=== PATIENT | male | born 1960 | race Caucasian/White ===

== ENCOUNTER 2022-05-23 13:28 | Emergency (ER) | payer OTHER ==
[~2022-05-23] VITALS: Ht 182.9 cm; Wt 87.5 kg
[~2022-05-23 13:28] MED LIST: BENZ100A PO; DOXY100 PO
== END 2022-05-23 15:49 | disposition home or self-care (01) ==
LOC: ER 13:28
DX: S61.412A Laceration without foreign body of left hand, initial encounter (principal); W26.0XXA Contact with knife, initial encounter; Z88.0 Allergy status to penicillin
CPT/HCPCS: 12001; 99282-25

== ENCOUNTER 2022-09-17 13:04 | Observation (INO) | payer OTHER ==
[~2022-09-17] VITALS: Ht 182.9 cm; Wt 83.9 kg
[2022-09-17 13:59] LABS: Hemoglobin 9.4 g/dL (13.5-17.5); Mean Corpuscular HGB 34.6 pg (26.0-34.0); Mean Corpuscular HGB Conc 34.8 g/dL (31.5-36.5); Mean Corpuscular Volume 99 fL (80-100); Mean Platelet Volume 10.1 fL (9.1-12.4); NRBC ABSOLUTE 0.03 K/mm3 (0.00-0.02); NRBC Auto 0.4 /100 WBC (0.0-0.2); Platelet Count 193 K/mm3 (150-400); RDW Standard Deviation 54.1 fL (35.1-46.3); Red Blood Cell Count 2.72 M/mm3 (4.30-5.90); White Blood Cell Count 7.72 K/mm3 (4.00-11.30)
[2022-09-17] MEDS ORDERED: LOSA50 PO (14:09)
[2022-09-17] MEDS ORDERED: LEVOFLOXACIN50011 PO (14:09)
[2022-09-17] MEDS ORDERED: INCRUSE ELPT62.5MCG INH (14:09)
[2022-09-17] MEDS ORDERED: METO50ER PO (14:10)
[2022-09-17 14:27] LABS: Albumin, Blood 3.2 g/dL (3.4-5.0); Albumin/Globulin Ratio 0.8 (0.8-1.8); Bilirubin, Total 0.3 mg/dL (0.1-1.0); Bun/Creatinine Ratio 20.4 (12.0-20.0); Calcium, Blood 8.5 mg/dL (8.5-10.1); Creatinine, Blood 0.93 mg/dL (0.60-1.20); Potassium, Blood 4.3 mmol/L (3.5-5.5); Total Protein, Blood 7.2 g/dL (6.4-8.2)
[2022-09-17 14:34] LABS: EOSINOPHILS PERCENT MAN 0 % (0-6)
[2022-09-17 14:37] LABS: BAND PERCENT MAN 2 % (0-8); BASOPHILS ABSOLUTE MAN 0.07 K/mm3 (0.00-0.23); BASOPHILS PERCENT MAN 1 % (0-2); LYMPHOCYTES ABSOLUTE MAN 1.46 K/mm3 (0.84-5.20); LYMPHOCYTES PERCENT MAN 19 % (21-46); MONOCYTES ABSOLUTE MAN 0.54 K/mm3 (0.16-1.47); MONOCYTES PERCENT MAN 7 % (4-13); NEUTROPHILS ABSOLUTE MAN 5.63 K/mm3 (1.96-9.15); SEG NEUTROPHILS PERCENT MAN 71 % (41-73); TOTAL CELLS COUNTED 100
--- NOTE | 2022-09-17 18:46 | NUR ---
SHIFT SUMMARY/ADMIT PATIENT ADMITTED AT 1800 FROM ER. PATIENT SETTLED INTO ROOM. PATIENT ORIENTED TO CALL LIGHT AND TV CONTROL. PATIENT SIGNIFICANT OTHER AT BEDSIDE DURING ADMIT. ADMISSION COMPLETE. PATIENT DENIES PAIN, CHEST PAIN, NAUSEA, AND SHORTNESS OF BREATH. PATIENT IS IND IN THE ROOM. PATIENT ON TELE, SR AT 92. PATIENT RECENTLY DX WITH LUNG CANCER AND RECEIVING CHEMO. PATIENT IS A&OX4. PATIENT IS EATING AND DRINKING WELL. PATIENT IS PLEASANT AND COOPERATIVE WITH CARE. NICOTINE PATCH ORDERED PER REQUEST OF PATIENT. PATIENT IS A 1PPD SMOKER.
--- NOTE | 2022-09-18 05:54 | NUR ---
FINANCE AND ADMINISTRATION MANAGER SUMMARY PT A/OX4. INDEPENDENT IN ROOM. ABLE TO MADE NEEDS KNOWN. PLEASANT AND COOPERATIVE W/CARE. NO ACUTE EVENTS OVER NIGHT. PT DENIES CHEST PAIN/PRESSURE, SOB, OR NAUSEA. TROPONIN SERIES COMPLETE--WNL AND TRENDING DOWN. REMAINS ON TELE, NORMAL SINUS IN THE 80'S. CALL LIGHT ACCESSIBLE.
[2022-09-18 05:57] LABS: Hematocrit 25.8 % (37.0-53.0); Mean Corpuscular HGB 34.6 pg (26.0-34.0); Mean Corpuscular HGB Conc 34.9 g/dL (31.5-36.5); Mean Corpuscular Volume 99 fL (80-100); Mean Platelet Volume 10.3 fL (9.1-12.4); NRBC ABSOLUTE 0.04 K/mm3 (0.00-0.02); NRBC Auto 0.3 /100 WBC (0.0-0.2); Platelet Count 176 K/mm3 (150-400); RDW Coefficient Variation 15.9 % (11.7-14.2); RDW Standard Deviation 52.9 fL (35.1-46.3); White Blood Cell Count 15.75 K/mm3 (4.00-11.30)
[2022-09-18 06:28] LABS: BAND PERCENT MAN 6 % (0-8); BASOPHILS PERCENT MAN 0 % (0-2); EOSINOPHILS PERCENT MAN 0 % (0-6); LYMPHOCYTES ABSOLUTE MAN 1.57 K/mm3 (0.84-5.20); LYMPHOCYTES PERCENT MAN 10 % (21-46); MONOCYTES ABSOLUTE MAN 0.31 K/mm3 (0.16-1.47); MONOCYTES PERCENT MAN 2 % (4-13); MYELOCYTE ABSOLUTE MAN 0.31 K/mm3 (0.00-0.00); MYELOCYTE PERCENT MAN 2 % (0-0); NEUTROPHILS ABSOLUTE MAN 13.54 K/mm3 (1.96-9.15); SEG NEUTROPHILS PERCENT MAN 80 % (41-73); TOTAL CELLS COUNTED 100
[2022-09-18 06:51] LABS: Albumin, Blood 2.8 g/dL (3.4-5.0); Anion Gap 6 mmol/L (6-16); Blood Urea Nitrogen 16 mg/dL (8-24); Bun/Creatinine Ratio 17.5 (12.0-20.0); CO2, Blood 22 mmol/L (21-32); Calcium, Blood 8.4 mg/dL (8.5-10.1); Chloride, Blood 104 mmol/L (98-108); Creatinine, Blood 0.92 mg/dL (0.60-1.20); Glomerular Filtration Rate 95 (60-); Glucose, Blood 101 mg/dL (70-99); Potassium, Blood 4.4 mmol/L (3.5-5.5); Sodium, Blood 132 mmol/L (136-145)
[2022-09-18] MEDS ORDERED: TIOT18 INH (17:37)
--- NOTE | 2022-09-18 18:32 | NUR ---
SHIFT SUMMARY PT REPORTS NO CP/PRESSURE/PALPITATIONS THIS SHIFT. OCCASIONAL COUGH NOTED AND PT ON ABX. PT CLEARED FOR DC AFTER HE HAS AN ECHOCARDIOGRAM. VSS. RESTING IN BED COMFORTABLY WITH HIS CALL LIGHT IN REACH.
--- NOTE | 2022-09-19 06:34 | NUR ---
EDITOR FARM JOURNAL SUMMARY: A&Ox4. PLEASANT AND COOPERATIVE WITH CARE. CALLS APPROPRIATELY AND IS ABLE TO COMMUNICATE NEEDS EFFECTIVELY. ORIENTED TO OWN ABILITIES AND EXHIBITS GOOD JUDGMENT. TELE SINUS w/ BBB. HAD SEVERAL EPISODES OF DIPPING DOWN INTO LOW-30s; PT ASYMPTOMATIC AND WAS NOTED TO BE SNORING DURING EACH OF THE TIMES BRADYCARDIA WAS NOTED. Dx JIM WITHOUT CPAP USE. ANTICIPATE DC HOME TODAY AFTER ECHO, IF IT IS WNL. INDEPENDENT WITHIN ROOM. NO CONCERNS T/O THE EVENING. REPORT TO ONCOMING RN.
--- NOTE | 2022-09-19 13:00 | NUR ---
DISCHARGE SUMMARY: PT EDUCATED ON DISCHARGE INSTRUCTIONS AND MEDICATIONS. PT VU. PT ASSISTED WITH PACKING UP BELONGINGS NICOTINE PATCH REMOVED PT INDICATED HE WAS GOING TO SMOKE CIGARETTES POST DISCHARGE. PT EDUCATED ON SMOKING CESSATION. PT ESCORTED TO POV WITH FRIEND VIA WC.
== END 2022-09-19 12:06 | disposition home or self-care (01) ==
LOC: ER 13:04 → MEDS 13:05 → ENPENDDIS 09-18 18:37 → MEDS 09-19 12:06
PROVIDERS: Emergency Medicine; ADMIT Family Medicine
DX: R07.89 Other chest pain (principal); Z88.0 Allergy status to penicillin; I10 Essential (primary) hypertension; F17.200 Nicotine dependence, unspecified, uncomplicated; C34.92 Malignant neoplasm of unspecified part of left bronchus or lung; R77.8 Other specified abnormalities of plasma proteins
CPT/HCPCS: 36415; 71046; 80053; 80069; 83880; 84145; 84484; 85025; 93005; 93010; 93306; 93356; 94640; 94664; 94760; 96372; 99285-25; A9270; G0378; J1650

== ENCOUNTER → 2022-11-13 | Outpatient (CLI) | payer OTHER ==
[~2022-11-13] MED LIST changes: +INCRUSE ELPT62.5MCG INH; +LEVOFLOXACIN50011 PO; +LOSA50 PO; +METO50ER PO; +TIOT18 INH
== END | disposition home or self-care (01) ==
LOC: LAB SHORT 14:05 → LAB 14:05
DX: L02.213 Cutaneous abscess of chest wall (principal)
CPT/HCPCS: 87070; 87075; 87205

== ENCOUNTER 2023-02-07 12:25 | Emergency (ER) | payer OTHER ==
[~2023-02-07] VITALS: Ht 182.9 cm; Wt 83.9 kg
[~2023-02-07 12:25] MED LIST changes: +HYDCOR20 PO; +LEVSOD137 PO; +METO25 PO; +Nicoderm Cq1 EAC1 TOP
[2023-02-07 12:32] VITALS: BP 128/71
[2023-02-07 12:55] LABS: BASOPHILS ABSOLUTE AUTO 0.02 K/mm3 (0.00-0.23); BASOPHILS PERCENT AUTO 0 % (0-2); EOSINOPHILS ABSOLUTE AUTO 0.16 K/mm3 (0.00-0.68); EOSINOPHILS PERCENT AUTO 2 % (0-6); Hematocrit 31.8 % (37.0-53.0); Hemoglobin 10.6 g/dL (13.5-17.5); IMMATURE GRAN ABSOLUTE AUTO 0.04 K/mm3 (0.00-0.10); IMMATURE GRAN PERCENT AUTO 1 % (0-1); LYMPHOCYTES ABSOLUTE AUTO 0.65 K/mm3 (0.84-5.20); LYMPHOCYTES PERCENT AUTO 8 % (21-46); MONOCYTES ABSOLUTE AUTO 0.61 K/mm3 (0.16-1.47); MONOCYTES PERCENT AUTO 8 % (4-13); Mean Corpuscular HGB 34.4 pg (26.0-34.0); Mean Corpuscular HGB Conc 33.3 g/dL (31.5-36.5); Mean Corpuscular Volume 103 fL (80-100); Mean Platelet Volume 10.2 fL (9.1-12.4); NEUTROPHILS ABSOLUTE AUTO 6.27 K/mm3 (1.96-9.15); NEUTROPHILS PERCENT AUTO 81 % (41-73); Platelet Count 182 K/mm3 (150-400); RDW Coefficient Variation 15.1 % (11.7-14.2); RDW Standard Deviation 57.2 fL (35.1-46.3); Red Blood Cell Count 3.08 M/mm3 (4.30-5.90); White Blood Cell Count 7.75 K/mm3 (4.00-11.30)
[2023-02-07 13:11] LABS: Albumin, Blood 2.3 g/dL (3.4-5.0); Albumin/Globulin Ratio 0.7 (0.8-1.8); Bilirubin, Total 0.3 mg/dL (0.1-1.0); Bun/Creatinine Ratio 19.3 (12.0-20.0); Calcium, Blood 7.4 mg/dL (8.5-10.1); Creatinine, Blood 0.88 mg/dL (0.60-1.20); Globulin, Blood 3.4 g/dL (2.2-4.0); Potassium, Blood 4.1 mmol/L (3.5-5.5); Total Protein, Blood 5.7 g/dL (6.4-8.2)
[2023-02-07 13:19] LABS: Free Thyroxine 0.7 ng/dL (0.70-1.60)
[2023-02-07 13:21] LABS: Thyroid Stimulating Hormone 43.2 uIU/mL (0.360-4.800); Triiodothyronine, Free 0.56 pg/mL (2.18-3.98)
== END 2023-02-07 14:50 | disposition home or self-care (01) ==
LOC: ER 12:25
PROVIDERS: Emergency Medicine
DX: E03.9 Hypothyroidism, unspecified (principal); Z88.0 Allergy status to penicillin; Z79.890 Hormone replacement therapy; Z79.899 Other long term (current) drug therapy
CPT/HCPCS: 80053; 83735; 83880; 84439; 84443; 84481; 85025; 93005; 93010; 99284-25

== ENCOUNTER 2023-02-21 15:39 | Inpatient (IN) | payer OTHER ==
[~2023-02-21] VITALS: Ht 182.9 cm; Wt 84.5 kg
[2023-02-21] VITALS (18 sets, daily range): BP systolic 88–127; BP diastolic 60–78
[2023-02-21] MEDS ORDERED: LEVOTHYROXINE150 MC9 PO (16:15)
[2023-02-21] MEDS ORDERED: ACET500 PO (16:19)
[2023-02-21] MEDS ORDERED: 1/2 NS 250ml250 ML (16:19)
[2023-02-21 17:15] LABS: BASOPHILS ABSOLUTE AUTO 0.02 K/mm3 (0.00-0.23); BASOPHILS PERCENT AUTO 0 % (0-2); EOSINOPHILS ABSOLUTE AUTO 0.35 K/mm3 (0.00-0.68); EOSINOPHILS PERCENT AUTO 6 % (0-6); Hematocrit 32.2 % (37.0-53.0); Hemoglobin 10.8 g/dL (13.5-17.5); IMMATURE GRAN ABSOLUTE AUTO 0.04 K/mm3 (0.00-0.10); IMMATURE GRAN PERCENT AUTO 1 % (0-1); LYMPHOCYTES PERCENT AUTO 15 % (21-46); MONOCYTES ABSOLUTE AUTO 0.54 K/mm3 (0.16-1.47); MONOCYTES PERCENT AUTO 9 % (4-13); Mean Corpuscular HGB 34.4 pg (26.0-34.0); Mean Corpuscular HGB Conc 33.5 g/dL (31.5-36.5); Mean Corpuscular Volume 103 fL (80-100); Mean Platelet Volume 9.5 fL (9.1-12.4); NEUTROPHILS ABSOLUTE AUTO 4.13 K/mm3 (1.96-9.15); NEUTROPHILS PERCENT AUTO 69 % (41-73); Platelet Count 227 K/mm3 (150-400); RDW Coefficient Variation 14.5 % (11.7-14.2); RDW Standard Deviation 54.7 fL (35.1-46.3); Red Blood Cell Count 3.14 M/mm3 (4.30-5.90); White Blood Cell Count 5.98 K/mm3 (4.00-11.30)
--- NOTE | 2023-02-21 17:20 | NUR ---
ADMISSION AND SHIFT SUMMARY PATIENT DIRECT ADMIT FROM [place]. PATIENT LETHARGIC BUT ALERT WHEN AROUSED. PATIENT DENIES ANY CHEST PAIN OR SHORTNESS OF BREATH. LUNGS DECREASED THROUGHOUT. PATIENT DENIES ANY ABD. PAIN. STATES THAT HE HAS HAD A POOR APPETITE FOR MONTHS AND HAS LOST OVER 30LBS. PATIENT NOTED TO HAVE BLE EDEMA. FAMILY STATES THAT THIS IS WHAT HAPPEN LAST TIME. PATIENT RECENTLY DISCHARGED FROM REHAB. FAMILY STATE THAT THEY HAVE BEEN HAVING TROUBLE GETTING HIS MEDICATIONS FOR AT HOME AND PATIENT HAS NOT TAKEN HIS METOPROLOL FOR ABOUT A WEEK. PATIENT'S HR [address] NAVARRETE NOTIFIED OF HR. PLAN TO START PO LOPRESSOR TONIGHT. PATIENT NOTED TO HAVE NO SKIN ISSUES AT THIS TIME. PATIENT HAS LARGE MOLE/SKIN TAG ON L LOWER BACK. NEW IV STARTED. PATIENT TAKEN DOWN TO CT VIA GURNEY AND RETURNED.
[2023-02-21 17:36] LABS: Albumin, Blood 3.1 g/dL (3.4-5.0); Albumin/Globulin Ratio 0.8 (0.8-1.8); Bilirubin, Total 0.6 mg/dL (0.1-1.0); Bun/Creatinine Ratio 19.9 (12.0-20.0); Calcium, Blood 8.5 mg/dL (8.5-10.1); Creatinine, Blood 0.81 mg/dL (0.60-1.20); Potassium, Blood 4.3 mmol/L (3.5-5.5); Total Protein, Blood 7.1 g/dL (6.4-8.2)
[2023-02-21 21:58] LABS: Anion Gap Unable to Calculate mmol/L (6-16); Bun/Creatinine Ratio Unable to Calculate (12.0-20.0)
[2023-02-21 22:25] LABS: BASOPHILS ABSOLUTE AUTO 0.01 K/mm3 (0.00-0.23); BASOPHILS PERCENT AUTO 0 % (0-2); EOSINOPHILS ABSOLUTE AUTO 0.08 K/mm3 (0.00-0.68); EOSINOPHILS PERCENT AUTO 2 % (0-6); Hematocrit 24.3 % (37.0-53.0); Hemoglobin 8.3 g/dL (13.5-17.5); IMMATURE GRAN ABSOLUTE AUTO 0.03 K/mm3 (0.00-0.10); IMMATURE GRAN PERCENT AUTO 1 % (0-1); LYMPHOCYTES ABSOLUTE AUTO 0.27 K/mm3 (0.84-5.20); LYMPHOCYTES PERCENT AUTO 6 % (21-46); MONOCYTES ABSOLUTE AUTO 0.18 K/mm3 (0.16-1.47); MONOCYTES PERCENT AUTO 4 % (4-13); Mean Corpuscular HGB 34.6 pg (26.0-34.0); Mean Corpuscular HGB Conc 34.2 g/dL (31.5-36.5); Mean Corpuscular Volume 101 fL (80-100); Mean Platelet Volume 9.3 fL (9.1-12.4); NEUTROPHILS ABSOLUTE AUTO 4.38 K/mm3 (1.96-9.15); NEUTROPHILS PERCENT AUTO 89 % (41-73); Platelet Count 199 K/mm3 (150-400); RDW Coefficient Variation 14.3 % (11.7-14.2); RDW Standard Deviation 53.3 fL (35.1-46.3); White Blood Cell Count 4.95 K/mm3 (4.00-11.30)
--- NOTE | 2023-02-21 22:34 | NUR ---
ARRIVAL TP PCU7 / SAFETY & EDUCATION PT ARRIVED TO PCU7 AT APPROXIMATELY 2039. SWITCHED BEDS SO PT REMAINED IN HOPITAL BED FROM MEDICAL FLOOR OT REQUIRING TRANSFER ASSISTANCE. PT A&Ox4, COMMUNICATES NEEDS APPROPRIATELY, ORIENTED TO CALL LIGHT/UNIT. SpO2> 92% BASELINE 2L VAI NC, DENIES SOB. UPON ARRIVAL PT IN SVT 140-160's, ASYMPTOMATIC, BP STABLE, DENIES CP/PRESSURE. PHSYCIAN AT BEDSIDE PROVIDED INSTRUCTION AND ORDERS. HAD PT BLOW INTO SYRINGE TO ATTEMPT VAGAL MANEUVER, THIS WAS UNSUCCESSFUL. PT RECEIVING 1000mL BOLUS UPON ARRIVAL. PT HAD NOT BEEN ADMINISTERED METOPROLOL THAT WAS ORDERED AT 1850. ORDERS PLACED TO ADMINISTER ADENOSINE. PHYSICIAN REMAINS AT BEDSIDE, CODE CART IN ROOM, PT CONNECTED TO EKG MACHINE, RT, AND WEB SITE PROJECT MANAGER IN ROOM. NEW 18g PERIPHERAL IV PLACED IN L AC, PATENT AND DRAWS BACK. THIS RN ADMINISTERED ORDERED ADENOSINE, PT REPSPONDED WELL, CONVERTED TO NSR, BP AND SpO2 REMAINS STABLE. PT NOW RESTING COMFORTABLY, BED IN LOWEST POSITION, CALL LIGHT IN REACH. PT NOTIFED FAMILY OF TRANSFER. PT & FAMILY EDUCATED RE: IGNITION SOURCES AND RISK OF INJURY WHILE OXYGEN IS IN USE. PT DENIES SMOKING & PT AND FAMILY VERBALIZE UNDERSTANDING.
[2023-02-21 22:54] LABS: Magnesium, Blood 1.7 mg/dL (1.6-2.4); Thyroid Stimulating Hormone 18.6 uIU/mL (0.360-4.800)
[2023-02-21 22:57] LABS: Bun/Creatinine Ratio 16.7 (12.0-20.0); Calcium, Blood 7.4 mg/dL (8.5-10.1); Creatinine, Blood 1.02 mg/dL (0.60-1.20); Potassium, Blood 3.9 mmol/L (3.5-5.5)
[2023-02-22] VITALS (13 sets, daily range): BP systolic 107–150; BP diastolic 60–80
[2023-02-22 04:10] LABS: BASOPHILS ABSOLUTE AUTO 0.01 K/mm3 (0.00-0.23); BASOPHILS PERCENT AUTO 0 % (0-2); EOSINOPHILS ABSOLUTE AUTO 0.01 K/mm3 (0.00-0.68); EOSINOPHILS PERCENT AUTO 0 % (0-6); Hematocrit 27.4 % (37.0-53.0); Hemoglobin 9.3 g/dL (13.5-17.5); IMMATURE GRAN ABSOLUTE AUTO 0.01 K/mm3 (0.00-0.10); IMMATURE GRAN PERCENT AUTO 0 % (0-1); LYMPHOCYTES ABSOLUTE AUTO 0.29 K/mm3 (0.84-5.20); LYMPHOCYTES PERCENT AUTO 9 % (21-46); MONOCYTES ABSOLUTE AUTO 0.23 K/mm3 (0.16-1.47); MONOCYTES PERCENT AUTO 7 % (4-13); Mean Corpuscular HGB 34.3 pg (26.0-34.0); Mean Corpuscular HGB Conc 33.9 g/dL (31.5-36.5); Mean Corpuscular Volume 101 fL (80-100); Mean Platelet Volume 9.6 fL (9.1-12.4); NEUTROPHILS ABSOLUTE AUTO 2.85 K/mm3 (1.96-9.15); NEUTROPHILS PERCENT AUTO 84 % (41-73); Platelet Count 219 K/mm3 (150-400); RDW Coefficient Variation 14.1 % (11.7-14.2); RDW Standard Deviation 51.9 fL (35.1-46.3); Red Blood Cell Count 2.71 M/mm3 (4.30-5.90)
[2023-02-22 04:50] LABS: Albumin, Blood 2.5 g/dL (3.4-5.0); Albumin/Globulin Ratio 0.7 (0.8-1.8); Bilirubin, Total 0.4 mg/dL (0.1-1.0); Calcium, Blood 7.5 mg/dL (8.5-10.1); Globulin, Blood 3.6 g/dL (2.2-4.0); Magnesium, Blood 1.8 mg/dL (1.6-2.4); Phosphorus, Blood 2.8 mg/dL (2.5-4.9); Potassium, Blood 4.3 mmol/L (3.5-5.5); Thyroid Stimulating Hormone 13.6 uIU/mL (0.360-4.800); Total Protein, Blood 6.1 g/dL (6.4-8.2)
--- NOTE | 2023-02-22 04:50 | NUR ---
SHIFT SUMMARY SEE PREVIOUS NOTE. PT A&Ox4, CALLS AND COMMUNICATES NEEDS APPROPRIATELY. BP STABLE, SINUS 70's, DENIES CP/PRESSURE. SpO2> 92% ON BASELINE 2L VIA NC, DENIES SOB. CONTINENT OF URINE, USES URINAL IND IN BED. NO BM THIS SHIFT. NO OTHER EVENTS, WILL REPORT TO ONCOMING RN.
--- NOTE | 2023-02-22 10:31 | NUR ---
CARE ASSUMPTION THIS RN ASSUMED CARE AT 0700. VITAL SIGNS STABLE. TELE SR 70S. PATIENT IS ALERT AND ORIENTED X4. PATIENT REPORTS NO CHEST PAIN/PRESSURE. PATIENT REPORTS NO PAIN. PATIENT REPORTS NO SHORTNESS OF BREATH. SEE SHIFT ASSESSMENT FOR FURTHER DETIALS. PATIENT IN TO BATHROOM INDEPDENTLY. THIS RN UNHOOKED FROM BLOOD PRESSURE CUFF AND SPO2 MONITOR. PATIENT PERFORMED ADLS INDEPDENTLY. PLAN OF CARE UP TO DATE.
--- NOTE | 2023-02-22 16:58 | NUR ---
shift summary patient neuro remains unchaged. vital signs stable. no acute changes this shift. plan to discharge tomorrow.
[2023-02-23 04:52] VITALS: BP 160/82
--- NOTE | 2023-02-23 06:32 | NUR ---
SHIFT SUMMARY PATIENT ALERT AND ORIENTED x4, ABLE TO MAKE NEEDS KNOWN. VITALS STABLE. TELE READING SR/SB WITH OCCASIONAL TRIGEM, PATIENT ASYMPTOMATIC. PATIENT ON 2L OVERNIGHT D/T SLIGHT DESAT WHILE SLEEPING. PATIENT USING URINAL INDEPENDENTLY WITH ADEQUATE OUTPUT. TOLERATING PO. MOVING SELF IN BED INDEPDENDENTLY. NO OTHER SIGNIFICANT CHANGES OVERNIGHT. WILL GIVE REPORT TO DAY SHIFT RN. NO IGNITION RISK NOTED AT THIS TIME. PATIENT EDUCATED AND VERBALIZED UNDERSTANDING. WILL CONTINUE TO MONITOR IGNITION RISK.
[2023-02-23 08:00] VITALS: BP 146/78
--- NOTE | 2023-02-23 09:13 | NUR ---
CARE OF PT ASSUMED AT 0700. PT SITTING UP IN BED WATCHING TV W/O COMPLAINTS. DENIES SOB/PAIN. SATS >95% ON 2L VIA N/C. VSS. PT HOPES TO GO HOME LONG HE IS ABLE TO LEATHER POLISHER PRESCRIPTIONS WITHOUT AN ISSUE.
[2023-02-23 11:15] VITALS: BP 147/79
[2023-02-23 16:30] VITALS: BP 161/84
--- NOTE | 2023-02-23 17:57 | NUR ---
DR NAVARRETE IN TO SEE PT THIS EVENING. PLAN: DISCHARGE PT HOME TOMORROW, PT NEEDS A MEDICATION/PRESCRIPTION THAT REQUIRES A PRIOR AUTHORIZATION PER DR NAVARRETE. PT RESTED IN BED WATCHING TV FOR ENTIRE SHIFT W/O COMPLAINTS. VSS, SATS HIGH 90'S ON 2L VIA N/C.
[2023-02-23 20:03] VITALS: BP 132/75
[2023-02-24 05:23] VITALS: BP 148/79
--- NOTE | 2023-02-24 05:48 | NUR ---
SHIFT SUMMARY NO CHANGES OVER NIGHT, A&O X4, VSS, SPO2 >93% ON 2 L O2 VIA NC, DENIES PAIN, USING URINAL INDEPENDENTLY, VOIDING WNL, TOLERATING PO INTAKE, WCTM & REPORT TO DAY RN, RESTING QUIETLY THIS AM WATCHING TV, CALL LIGHT IN REACH.
[2023-02-24 07:51] VITALS: BP 135/79
[2023-02-24 15:48] VITALS: BP 151/82
--- NOTE | 2023-02-24 16:23 | NUR ---
DISCHARGE SUMMARY PT A&OX4,VSS. PT UP TO BATHROOM TO SHOWER PRIOR TO DISCHARGE. PRIOR AUTH RECEIVED FROM [facility] TODAY, SPOUSE IN ROOM WITH DISCHARGE MEDICATIONS ALREADY PICKED UP FROM PHARMACY. IV REMOVED. DISCHARGE PAPERWORK/MEDICATIONS REVIEWED WITH PT. PT WHEELED OUT BY PCT W/ SPOUSE.
== END 2023-02-24 16:09 | disposition home or self-care (01) | DRG 871 ==
LOC: MEDS 15:39 → PCU 15:47 → MEDS 15:47 → PCU 20:39
PROVIDERS: Student in an Organized Health Care Education/Training Program; ADMIT Internal Medicine
DX: A41.9 Sepsis, unspecified organism (principal); E03.5 Myxedema coma; J96.01 Acute respiratory failure with hypoxia; J18.9 Pneumonia, unspecified organism; G92.8 Other toxic encephalopathy; E27.3 Drug-induced adrenocortical insufficiency; C34.12 Malignant neoplasm of upper lobe, left bronchus or lung; N17.9 Acute kidney failure, unspecified; I47.1 Supraventricular tachycardia; J44.0 Chronic obstructive pulmonary disease with (acute) lower respiratory infection; T45.1X5A Adverse effect of antineoplastic and immunosuppressive drugs, initial encounter; E06.3 Autoimmune thyroiditis; E87.6 Hypokalemia; I27.20 Pulmonary hypertension, unspecified; F17.210 Nicotine dependence, cigarettes, uncomplicated; E83.42 Hypomagnesemia; R54 Age-related physical debility; D64.9 Anemia, unspecified; R77.8 Other specified abnormalities of plasma proteins; T38.0X6A Underdosing of glucocorticoids and synthetic analogues, initial encounter; Z71.6 Tobacco abuse counseling; Z90.89 Acquired absence of other organs; Z88.0 Allergy status to penicillin; Z79.890 Hormone replacement therapy; Z79.899 Other long term (current) drug therapy; Z91.148 Patient's other noncompliance with medication regimen for other reason
CPT/HCPCS: 36415; 71260; 80048; 80053; 83735; 84100; 84145; 84443; 85025; 93005; 93010; 94640; 94664; 94760; 94762; A9270; J0153; J0696; J1650; J1720; J7030; Q9967

== ENCOUNTER 2023-04-26 15:43 | Inpatient (IN) | payer OTHER ==
[~2023-04-26] VITALS: Ht 182.9 cm; Wt 71.5 kg
[~2023-04-26 15:43] MED LIST changes: +1/2 NS 250ml250 ML; +ACET500 PO; +LEVOTHYROXINE150 MC9 PO
[2023-04-26 16:25] LABS: BASOPHILS ABSOLUTE AUTO 0.03 K/mm3 (0.00-0.23); BASOPHILS PERCENT AUTO 1 % (0-2); EOSINOPHILS ABSOLUTE AUTO 0.23 K/mm3 (0.00-0.68); EOSINOPHILS PERCENT AUTO 4 % (0-6); Hematocrit 30.1 % (37.0-53.0); Hemoglobin 10.2 g/dL (13.5-17.5); IMMATURE GRAN ABSOLUTE AUTO 0.03 K/mm3 (0.00-0.10); IMMATURE GRAN PERCENT AUTO 1 % (0-1); LYMPHOCYTES ABSOLUTE AUTO 1.01 K/mm3 (0.84-5.20); LYMPHOCYTES PERCENT AUTO 16 % (21-46); MONOCYTES ABSOLUTE AUTO 0.83 K/mm3 (0.16-1.47); MONOCYTES PERCENT AUTO 13 % (4-13); Mean Corpuscular HGB 32.7 pg (26.0-34.0); Mean Corpuscular HGB Conc 33.9 g/dL (31.5-36.5); Mean Corpuscular Volume 97 fL (80-100); Mean Platelet Volume 9.2 fL (9.1-12.4); NEUTROPHILS PERCENT AUTO 67 % (41-73); Platelet Count 204 K/mm3 (150-400); RDW Coefficient Variation 12.9 % (11.7-14.2); RDW Standard Deviation 44.4 fL (35.1-46.3); Red Blood Cell Count 3.12 M/mm3 (4.30-5.90); White Blood Cell Count 6.53 K/mm3 (4.00-11.30)
[2023-04-26 16:42] LABS: Albumin, Blood 2.6 g/dL (3.4-5.0); Albumin/Globulin Ratio 0.8 (0.8-1.8); Bilirubin, Total 0.7 mg/dL (0.1-1.0); Bun/Creatinine Ratio 11.3 (12.0-20.0); Calcium, Blood 9.3 mg/dL (8.5-10.1); Creatinine, Blood 1.77 mg/dL (0.60-1.20); Globulin, Blood 3.4 g/dL (2.2-4.0)
[2023-04-26 16:45] LABS: Base Excess Venous -0.6 mmol/L; Bicarbonate Venous 23.2 mmol/L (24.0-30.0); PCO2 Venous 55.6 mmHg (38-42); pH Blood Venous 7.28 (7.34-7.37)
[2023-04-26 16:57] LABS: International Normalized Ratio 1.25
[2023-04-26 16:59] LABS: Free Thyroxine 1.74 ng/dL (0.70-1.60)
[2023-04-26 17:02] LABS: Thyroid Stimulating Hormone 0.839 uIU/mL (0.360-4.800); Triiodothyronine, Free 1.92 pg/mL (2.18-3.98)
[2023-04-26 19:09] LABS: Influenza A, PCR NEGATIVE (NEGATIVE); Influenza B, PCR NEGATIVE (NEGATIVE); Resp Syncytial Virus, PCR NEGATIVE (NEGATIVE); SARS-Cov-2 (COVID-19) PCR, MMC NEGATIVE (NEGATIVE)
[2023-04-26 19:41] LABS: Source, Urine Straight Cath
[2023-04-26 19:56] LABS: Blood, Urine 1+ (Neg); Glucose Qualitative, Urine Neg (Neg); Ketones, Urine 1+ (Neg); Leukocyte Esterase, Urine 1+ (Neg); Nitrite, Urine Neg (Neg); Protein, Urine 2+ (Neg); Urobilinogen, Urine 2+ (Normal)
[2023-04-26 20:05] LABS: Appearance, Urine Hazy (Clear); Bilirubin, Urine 1+ (Neg); Color, Urine Amber (P-Yellow)
[2023-04-26 20:07] LABS: Amorphous Light (0-Heavy); Bacteria Few /hpf; Hyaline Casts 25-50 /lpf (0-2); Mucus Mod (0-Heavy); Red Blood Cells, Urine 0-2 /hpf (0-2); Squamous Epithelial Cells Rare /hpf (Few); White Blood Cells, Urine 0-2 /hpf (0-5)
[2023-04-26 20:10] VITALS: BP 100/64
--- NOTE | 2023-04-26 20:30 | NUR ---
ADMIT NOTE PT ARRIVED FROM ER TO ICU ROOM 10 AT 2004. PT IS LETHARGIC BUT WILL RESPOND TO LOUD VERBAL/TACTILE STIMULI. HE IS ORIENTED TO PERSON AND PLACE. HE IS ON 2LNC W/OXYGEN SAT >90% AT THIS TIME. HE IS SR ON THE BRAND ADVOCATE, BP WNL W/MAP >65. HE HAS LABS PENDING AND HOSPITIALIST WILL BE NOTIFIED OF ANY RESULTS APPROPRIATE. PT DENIES PAIN CURRENTLY. GIRLFRIEND/DAUGHTER AT BEDSIDE BUT WILL BE GOING HOME TONIGHT. PT IS AFEBRILE. HE CAN ESTES BUT GEN WEAKNESS IS NOTED. FAMILY/PT EDUCATED ON UNIT POLICY/PROCEDURES.
[2023-04-26 20:42] LABS: Base Excess Venous -6.9 mmol/L; Bicarbonate Venous 18.9 mmol/L (24.0-30.0); PCO2 Venous 51.9 mmHg (38-42); pH Blood Venous 7.21 (7.34-7.37)
[2023-04-26 21:00] VITALS: BP 95/56
--- NOTE | 2023-04-26 21:02 | NUR ---
CUSTOMER SERVICE VOICE NEGRA NOTIFIED OF CRITICAL PH. ORDERS GIVEN, ALSO NOTIFIED HIM OF PT PCN ALLERGY AND ROCEPHIN ORDER. ORDER OK TO GIVE ROCEPHIN. PT OXYGEN SAT DROPPED WHILE SLEEPING INTO THE 70S BUT WAS BREATHING THROUGH MOUTH, SATS RECOVERED WHEN PT WAS AWAKENED. OXYGEN SAT 96% ON 2LNC W/NO S/S OF RESP DISTRESS NOTED AT THE CURRENT TIME. CUSTOMER SERVICE VOICE REQUEST ME TO ASK PT IF HE IS WILLING TO WEAR BIPAP. CUSTOMER SERVICE VOICE STATES OK IF PT REFUSES.
[2023-04-26 21:07] LABS: Bun/Creatinine Ratio 12.5 (12.0-20.0); Calcium, Blood 8.5 mg/dL (8.5-10.1); Creatinine, Blood 1.68 mg/dL (0.60-1.20); Potassium, Blood 3.9 mmol/L (3.5-5.5)
--- NOTE | 2023-04-26 21:21 | NUR ---
RT IGNACIO RINALDI NOTIFIED PT HAS MD ORDER FOR BIPAP
--- NOTE | 2023-04-26 21:41 | NUR ---
PT STATES HE AGREES TO BE PUT ON BIPAP. RT CLIFTON AT BEDSIDE.
[2023-04-26 22:00] VITALS: BP 104/58
[2023-04-26 23:00] VITALS: BP 106/70
[2023-04-26 23:30] VITALS: BP 104/69
[2023-04-27] VITALS (60 sets, daily range): BP systolic 75–130; BP diastolic 48–85
--- NOTE | 2023-04-27 00:15 | NUR ---
PT HAD A CHANGE IN CARDIAC RHYTHM AND DROP IN BLOOD PRESSURE. DR HERNANDEZ WAS NOTIFIED. ORDERS GIVEN. PT HAS HAD NO CHANGE IN LOC.
[2023-04-27 00:55] LABS: Base Excess Venous -7.7 mmol/L; Bicarbonate Venous 18.6 mmol/L (24.0-30.0)
[2023-04-27 01:04] LABS: White Blood Cell Count 2.73 K/mm3 (4.00-11.30)
[2023-04-27 01:05] LABS: BASOPHILS ABSOLUTE AUTO 0.01 K/mm3 (0.00-0.23); BASOPHILS PERCENT AUTO 0 % (0-2); EOSINOPHILS PERCENT AUTO 0 % (0-6); Hemoglobin 9.4 g/dL (13.5-17.5); IMMATURE GRAN ABSOLUTE AUTO 0.01 K/mm3 (0.00-0.10); IMMATURE GRAN PERCENT AUTO 0 % (0-1); LYMPHOCYTES ABSOLUTE AUTO 0.29 K/mm3 (0.84-5.20); LYMPHOCYTES PERCENT AUTO 11 % (21-46); MONOCYTES ABSOLUTE AUTO 0.11 K/mm3 (0.16-1.47); MONOCYTES PERCENT AUTO 4 % (4-13); Mean Corpuscular HGB 32.3 pg (26.0-34.0); Mean Corpuscular HGB Conc 32.4 g/dL (31.5-36.5); Mean Corpuscular Volume 100 fL (80-100); Mean Platelet Volume 9.7 fL (9.1-12.4); NEUTROPHILS ABSOLUTE AUTO 2.31 K/mm3 (1.96-9.15); NEUTROPHILS PERCENT AUTO 85 % (41-73); Platelet Count 142 K/mm3 (150-400); RDW Coefficient Variation 12.9 % (11.7-14.2); RDW Standard Deviation 46.2 fL (35.1-46.3); Red Blood Cell Count 2.91 M/mm3 (4.30-5.90)
[2023-04-27 01:22] LABS: Albumin, Blood 2.5 g/dL (3.4-5.0); Albumin/Globulin Ratio 0.7 (0.8-1.8); Bilirubin, Direct 0.3 mg/dL (0.0-0.3); Bilirubin, Indirect 0.3 mg/dL (0.1-0.7); Bilirubin, Total 0.6 mg/dL (0.1-1.0); Bun/Creatinine Ratio 14.5 (12.0-20.0); Calcium, Blood 8.6 mg/dL (8.5-10.1); Creatinine, Blood 1.59 mg/dL (0.60-1.20); Globulin, Blood 3.4 g/dL (2.2-4.0); Magnesium, Blood 1.5 mg/dL (1.6-2.4); Phosphorus, Blood 4.8 mg/dL (2.5-4.9); Potassium, Blood 4.3 mmol/L (3.5-5.5); Total Protein, Blood 5.9 g/dL (6.4-8.2)
[2023-04-27 01:54] LABS: Source, Urine Foley catheter
[2023-04-27 01:57] LABS: Bilirubin, Urine Neg (Neg); Blood, Urine 4+ (Neg); Glucose Qualitative, Urine Neg (Neg); Ketones, Urine 2+ (Neg); Leukocyte Esterase, Urine Neg (Neg); Nitrite, Urine Neg (Neg); Protein, Urine 2+ (Neg); Specific Gravity, Urine 1.015 (1.003-1.022); Urobilinogen, Urine NORM (Normal)
[2023-04-27 02:11] LABS: U Amphetamine Screen Not Detected; U Barbituate Screen Not Detected; U Benzodiazapine Screen Not Detected; U Buprenorphine Screen Not Detected; U Cannabinoids Screen Not Detected; U Cocaine Screen Not Detected; U Methadone Screen Not Detected; U Methamphetamine Screen Not Detected; U Opiates Screen Not Detected; U Oxycodone Screen Not Detected; U Phencyclidine Screen Not Detected; U Propoxyphene Screen Not Detected
[2023-04-27 02:12] LABS: Appearance, Urine Clear (Clear); Color, Urine Yellow (P-Yellow)
[2023-04-27 02:13] LABS: Amorphous Light (0-Heavy); Bacteria Not Seen /hpf; Red Blood Cells, Urine 0-2 /hpf (0-2); Squamous Epithelial Cells Not Seen /hpf (Few); Transitional Epithelial Cells Few /hpf (0-Rare); White Blood Cells, Urine 0-2 /hpf (0-5)
--- NOTE | 2023-04-27 05:11 | NUR ---
PT HAS BECOME INCREASINGLY CONFUSED AND AGITATED, TRYING TO HIT ME AND CURSING STATING HE IS AT MY HOUSE, HE IS UNABLE TO STATE THE MONTH OR YEAR AND HAS A VISIBLE TREMOR-SEE KANDACE
--- NOTE | 2023-04-27 05:30 | NUR ---
PT HEART RHYTHM BACK IN AFIB RVR, DR HERNANDEZ NOTIFIED. ORDERS GIVEN-ALSO NOTIFIED HIM OF PT CIWA SCORE.
--- NOTE | 2023-04-27 06:36 | NUR ---
PT GIVEN AMIODARONE BOLUS W/OUT CONTINUOUS INFUSION TO FOLLOW PER MD ORDER. PT CONVERTED FROM AFIB W/RVR TO SR IN THE 70S AT THE CURRENT TIME. PT BP IS 113/65. HE IS RESTING W/BIPAP IN PLACE, OXYGEN SAT 98%.
--- NOTE | 2023-04-27 09:29 | NUR ---
ASSUMED CARE REPORT FROM STEW RAI AT 0700. PT RESTING IN BED. BIPAP IN PLACE, 25/12/%. TV 700'S. LUNGS CLEAR. PT RESPONSIVE TO PAINFUL STIMULI. WITHDRAWS FROM PAIN. MAEW. DOES NOT FOLLOW COMMANDS. SR, RATE 70'S. BP STABLE. ABD ROUND, SOFT, NON TENDER. BT X 4. PIV X 3. SCATTERED SCABS THROUGHOUT BODY. REDNESS TO COCCYX, BLANCHABLE. WILL CONTINUE TO MONITOR.
[2023-04-27 12:00] LABS: Base Excess Venous -8.8 mmol/L; Bicarbonate Venous 18.2 mmol/L (24.0-30.0); PCO2 Venous 29.8 mmHg (38-42); pH Blood Venous 7.36 (7.34-7.37)
[2023-04-27 12:29] LABS: Bun/Creatinine Ratio 17.9 (12.0-20.0); Calcium, Blood 8.6 mg/dL (8.5-10.1); Creatinine, Blood 1.45 mg/dL (0.60-1.20); Phosphorus, Blood 5.7 mg/dL (2.5-4.9); Potassium, Blood 4.5 mmol/L (3.5-5.5)
--- NOTE | 2023-04-27 18:02 | NUR ---
SHIFT SUMMARY PT REMAINED ON BIPAP MOST OF SHIFT, 14//25%. LUNGS CLEAR IN UPPER, DIM IN BASES. PT PULLED OFF MID DAY FOR 1 HOUR, TOLERATED RA. REPLACED AFTER PT BECAME SLEEPY. PT WAKES c VERBAL STIMULI, CONFUSED WORDS. DOES NOT ANSWER QUESTIONS APPROPRIATELY OR FOLLOW COMMANDS. WITHDRAWS FROM PAIN. FAMILY VISITED. STATES THIS HAS OCCURRED BEFORE AND PT TOOK SEVERAL DAYS TO REORIENT. DAUGHTER ALSO UNCLEAR ABOUT ETOH USE, INITIALLY STATES ITS BEEN A MONTH SINCE DAILY ETOH, THEN STATES "HE MIGHT HIDE SOME." PT IN AFIB MOST OF SHIFT, AMIO GTT INFUSING, CONVERTED TO NSR THIS AFTERNOON. BP DECREASED WHEN IN AFIB, STABLE WHEN IN NSR. MAGDALENA REMAINS IN PLACED FOR RETENTION. WILL CONTINUE TO MONITOR UNTIL REPORT TO ONCOMING NURSE.
[2023-04-28] VITALS (40 sets, daily range): BP systolic 99–130; BP diastolic 55–100
[2023-04-28 03:20] LABS: Hematocrit 25.8 % (37.0-53.0); Hemoglobin 8.6 g/dL (13.5-17.5); Mean Corpuscular HGB 32.1 pg (26.0-34.0); Mean Corpuscular HGB Conc 33.3 g/dL (31.5-36.5); Mean Corpuscular Volume 96 fL (80-100); Mean Platelet Volume 9.1 fL (9.1-12.4); Platelet Count 138 K/mm3 (150-400); RDW Coefficient Variation 12.6 % (11.7-14.2); RDW Standard Deviation 43.4 fL (35.1-46.3); Red Blood Cell Count 2.68 M/mm3 (4.30-5.90); White Blood Cell Count 4.02 K/mm3 (4.00-11.30)
[2023-04-28 03:49] LABS: Albumin, Blood 2.4 g/dL (3.4-5.0); Albumin/Globulin Ratio 0.8 (0.8-1.8); Bilirubin, Total 0.3 mg/dL (0.1-1.0); Bun/Creatinine Ratio 23.5 (12.0-20.0); Calcium, Blood 8.3 mg/dL (8.5-10.1); Creatinine, Blood 1.36 mg/dL (0.60-1.20); Globulin, Blood 3.2 g/dL (2.2-4.0); Magnesium, Blood 1.9 mg/dL (1.6-2.4); Phosphorus, Blood 4.6 mg/dL (2.5-4.9); Total Protein, Blood 5.6 g/dL (6.4-8.2)
[2023-04-28 03:52] LABS: BAND PERCENT MAN 12 % (0-8); BASOPHILS PERCENT MAN 0 % (0-2); EOSINOPHILS PERCENT MAN 0 % (0-6); LYMPHOCYTES ABSOLUTE MAN 0.36 K/mm3 (0.84-5.20); LYMPHOCYTES PERCENT MAN 9 % (21-46); MONOCYTES ABSOLUTE MAN 0.12 K/mm3 (0.16-1.47); MONOCYTES PERCENT MAN 3 % (4-13); NEUTROPHILS ABSOLUTE MAN 3.53 K/mm3 (1.96-9.15); SEG NEUTROPHILS PERCENT MAN 76 % (41-73); TOTAL CELLS COUNTED 100
--- NOTE | 2023-04-28 06:31 | NUR ---
SHIFT SUMMERY PT CONTINUES ON AMIODARONE GTT AT 0.5MG PER MD ORDER. PT IS SR ON THE TONGUE STITCHER AT THIS TIME BUT HAS BEEN INTERMITTENTLY IN AFIB OVERNIGHT. BP HAS REMAINED WNL. PT WORE BIPAP AT TIMES WHILE SLEEPING BUT WAS MOSTLY NON-COMPLIANT W/USAGE. HE IS DROWSY, ORIENTED TO SELF AND PLACE. NICHOLS CATH INTACT PATENT AND DRAINING YELLOW URINE. PT HAS HAD NO COMPLAINTS OF ACUTE DISTRESS OR CHANGES TO PLAN OF CARE OVERNIGHT.
--- NOTE | 2023-04-28 08:30 | NUR ---
SHIFT ASSESSMENT PT SLEEPING IN ROOM, AWAKENS EASILY TO VERBAL STIMULI. A&O TO PERSON & YEAR BUT DOES NOT REMEMBER EVENTS LEADING UP TO HOSPITALIZATION. PT MOVING ALL EXTREMITIES, ASSISTING WITH TURNS. HAVE NOT HAD PT OUT OF BED YET, REMAINS WEAK BUT IMPROVED FROM YESTERDAY. ON 2LPM O2 VIA NC c SATS >95% WHILE AWAKE. NICHOLS CATH PATENT, DRAINING YELLOW URINE. SMALL LOOSE BM.
--- NOTE | 2023-04-28 18:52 | NUR ---
TRANSFER NOTE: PT ARRIVED FROM ICU ON A BED AND TRANSFERED WITH SBA FROM TWO STAFF MEMBERS TO PCU BED. PT ABLE TO SIT ON SIDE OF BED TO EAT DINNER AND AMBULATE TO BATHROOM. PT NOW LAYING IN BED COMFORTABLY WITH CALL LIGHT ON, BED IN LOWEST POSITION, BED ALARM ON. PT ABLE TO MAKE NEEDS KNOWN
[2023-04-29 00:02] VITALS: BP 141/75
[2023-04-29 03:50] VITALS: BP 126/94
[2023-04-29 04:10] LABS: BASOPHILS PERCENT AUTO 0 % (0-2); EOSINOPHILS PERCENT AUTO 0 % (0-6); Hematocrit 25.1 % (37.0-53.0); Hemoglobin 8.4 g/dL (13.5-17.5); IMMATURE GRAN ABSOLUTE AUTO 0.01 K/mm3 (0.00-0.10); IMMATURE GRAN PERCENT AUTO 0 % (0-1); LYMPHOCYTES PERCENT AUTO 8 % (21-46); MONOCYTES ABSOLUTE AUTO 0.21 K/mm3 (0.16-1.47); MONOCYTES PERCENT AUTO 5 % (4-13); Mean Corpuscular HGB 32.3 pg (26.0-34.0); Mean Corpuscular HGB Conc 33.5 g/dL (31.5-36.5); Mean Corpuscular Volume 97 fL (80-100); Mean Platelet Volume 9.8 fL (9.1-12.4); NEUTROPHILS ABSOLUTE AUTO 3.34 K/mm3 (1.96-9.15); NEUTROPHILS PERCENT AUTO 87 % (41-73); Platelet Count 153 K/mm3 (150-400); RDW Coefficient Variation 12.6 % (11.7-14.2); RDW Standard Deviation 43.3 fL (35.1-46.3); White Blood Cell Count 3.86 K/mm3 (4.00-11.30)
[2023-04-29 04:48] LABS: Albumin, Blood 2.6 g/dL (3.4-5.0); Albumin/Globulin Ratio 0.8 (0.8-1.8); Bilirubin, Total 0.3 mg/dL (0.1-1.0); Bun/Creatinine Ratio 36.5 (12.0-20.0); Creatinine, Blood 1.26 mg/dL (0.60-1.20); Globulin, Blood 3.2 g/dL (2.2-4.0); Potassium, Blood 3.5 mmol/L (3.5-5.5); Total Protein, Blood 5.8 g/dL (6.4-8.2)
--- NOTE | 2023-04-29 05:45 | NUR ---
SHIFT SUMMARY: A&OX4. PLEASANT, COOPERATIVE WITH CARE, FOLLOWS DIRECTIONS AND ABLE TO MAKE NEEDS KNOWN. DENIES ANY COMPLAINTS OF SOB. O2 SAT MAINTAINED > 92% ON RA WHILE AWAKE AND 2 LPM WHILE SLEEPING, PT REPORTS THIS IS BASELINE FOR HIM. DENIES ANY CHEST PAIN/PRESSURE. HR IS SR IN THE 90'S WITH OCCASIONALY BRADYING DOWN INTO THE 30'S. ASYMPTOMATIC WITH DESCELERATION OF HEART. UP TO BATHROOM WITH SBA AND FWW. VOIDING WITHOUT DIFFICULTY. NO ACUTE CHANGES NOTED DURING THIS SHIFT. CALL LIGHT IN REACH. BED IN LOW POSITION.
[2023-04-29 07:36] VITALS: BP 119/69
[2023-04-29 11:23] VITALS: BP 122/71
--- NOTE | 2023-04-29 12:24 | NUR ---
PT TRANSFERED TO MEDICAL FLOOR. REPROT GIVEN TO CECELIA LUGO. PT ESCORTED UPSTAIRS VIA WHEELCHAIR BY THIS RN. PT STATED UNDERSTANDING OF DECREASE IN LEVLE OF CARE AND NEED TO MOVE ROOMS. PT DENIED ANY PAIN OR CONCERNS AT TIME OF DISCHARGE. PT PARTICIPATED IN PT BEFORE TRANSFER AND STATES UNDERSTANDING FOR NEED TO MOBILIZE. PT TRANSFERING SBA WITH FWW.
--- NOTE | 2023-04-29 12:26 | NUR ---
ASSUMED CARE OF PATIENT UPON HIS ARRIVAL FROM PCU AT 1215. A&O X 4, PLEASANT. ON ROOM AIR, LUNG SOUNDS VERY DIM ON L SIDE. TELEMETRY BOX VERIFIED WITH FRONT END ENGINEER, SR 84. AMBUALTORY WITH FWW. CALL LIGHT IN REACH.
[2023-04-29 15:26] VITALS: BP 129/69
--- NOTE | 2023-04-29 17:32 | NUR ---
SHIFT SUMMARY: NO ACUTE EVENTS SINCE TRANSFER FROM PCU. NO EVENTS ON TELE, SR 80'S. DENIED PAIN. GETTING UP TO BR WITH FWW AND SUPERVISION. GOOD APPETITE. ON ROOM AIR. HAD SEVERAL VISITORS, IS HOPING TO GO HOME TOMORROW.
[2023-04-29 19:19] VITALS: BP 123/65
--- NOTE | 2023-04-30 03:23 | NUR ---
SHIFT SUMMARY PT A&O X4, CALM AND COOPERATIVE WITH CARE. TELEMETRY: SR @ 80. DENIES ANY CP OR PRESSURE AT THIS TIME. ROOM AIR WHILE AWAKE AND 2L O2 WHILE SLEEPING. SATS ABOVE 94%. THIS IS PATIENTS BASELINE AT HOME. PT SBA W/FFW WHILE AMBULATING TO BATHROOM, VOIDING WITHOUT DIFFICULTY. SPUTUM SAMPLE COLLECTED AND SENT TO LAB. PT ASSESSED FOR ALCOHOL WITHDRAWL, NO SIGNS OR SYMPTOMS NOTICED. BED KEPT IN LOWEST POSITION WITH CALL ALARM KEPT WITHIN REACH. WILL CONTINUE TO MONITOR.
[2023-04-30 04:31] VITALS: BP 113/74
[2023-04-30] MEDS ORDERED: LOSA50 PO (04:35)
[2023-04-30] MEDS ORDERED: INCRUSE ELPT62.5MCG INH (04:36)
[2023-04-30 06:34] LABS: BASOPHILS PERCENT AUTO 0 % (0-2); EOSINOPHILS PERCENT AUTO 0 % (0-6); Hematocrit 24.5 % (37.0-53.0); Hemoglobin 8.3 g/dL (13.5-17.5); IMMATURE GRAN ABSOLUTE AUTO 0.02 K/mm3 (0.00-0.10); IMMATURE GRAN PERCENT AUTO 1 % (0-1); LYMPHOCYTES ABSOLUTE AUTO 0.69 K/mm3 (0.84-5.20); LYMPHOCYTES PERCENT AUTO 21 % (21-46); MONOCYTES ABSOLUTE AUTO 0.31 K/mm3 (0.16-1.47); MONOCYTES PERCENT AUTO 9 % (4-13); Mean Corpuscular HGB Conc 33.9 g/dL (31.5-36.5); Mean Corpuscular Volume 95 fL (80-100); Mean Platelet Volume 10.2 fL (9.1-12.4); NEUTROPHILS ABSOLUTE AUTO 2.32 K/mm3 (1.96-9.15); NEUTROPHILS PERCENT AUTO 69 % (41-73); Platelet Count 148 K/mm3 (150-400); RDW Coefficient Variation 12.6 % (11.7-14.2); RDW Standard Deviation 43.7 fL (35.1-46.3); Red Blood Cell Count 2.59 M/mm3 (4.30-5.90); White Blood Cell Count 3.34 K/mm3 (4.00-11.30)
[2023-04-30 06:44] LABS: Bun/Creatinine Ratio 34.2 (12.0-20.0); Calcium, Blood 7.6 mg/dL (8.5-10.1); Creatinine, Blood 1.11 mg/dL (0.60-1.20); Potassium, Blood 3.2 mmol/L (3.5-5.5)
[2023-04-30 07:05] VITALS: BP 126/68
[2023-04-30 16:00] VITALS: BP 123/73
--- NOTE | 2023-04-30 17:04 | NUR ---
SHIFT SUMMARY PT IS ALERT AND ORIENTED X4. ABLE TO MAKE NEEDS KNOWN. COOPERATIVE WITH STAFF AND CARES. PT DENIES C/P AND SOB, DENIES PAIN, INDEPENDENT IN THE ROOM WITH FWW. K+ REPLACED TODAY. BED IN THE LOWEST POSITION WITH CALL LIGHT IN REACH.
[2023-04-30 19:16] VITALS: BP 121/66
--- NOTE | 2023-05-01 03:01 | NUR ---
SHIFT SUMMARY PT A&O X4, CALM AND COOPERATIVE WITH CARE. PT IS SBA W/ FWW WHEN AMBULATING TO THE BATHROOM. CONTINENT AND VOIDING WITHOUT DIFFICULTY. TELEMETRY: SR @75. CURRENTLY ON 2L OF O2 VIA NC WITH CONTINUOUS PULSE OX MONITORING. PT DENIES ANY CP, PRESSURE, OR SOB. CALL LIGHT IN REACH WITH BED IN THE LOWEST POSITION. WILL CONTINUE TO MONITOR UNTIL END OF SHIFT.
[2023-05-01 04:57] VITALS: BP 102/57
[2023-05-01 05:51] LABS: BASOPHILS ABSOLUTE AUTO 0.01 K/mm3 (0.00-0.23); BASOPHILS PERCENT AUTO 0 % (0-2); EOSINOPHILS ABSOLUTE AUTO 0.05 K/mm3 (0.00-0.68); EOSINOPHILS PERCENT AUTO 1 % (0-6); Hematocrit 27.6 % (37.0-53.0); Hemoglobin 9.2 g/dL (13.5-17.5); IMMATURE GRAN ABSOLUTE AUTO 0.02 K/mm3 (0.00-0.10); IMMATURE GRAN PERCENT AUTO 0 % (0-1); LYMPHOCYTES ABSOLUTE AUTO 1.37 K/mm3 (0.84-5.20); LYMPHOCYTES PERCENT AUTO 29 % (21-46); MONOCYTES ABSOLUTE AUTO 0.49 K/mm3 (0.16-1.47); MONOCYTES PERCENT AUTO 10 % (4-13); Mean Corpuscular HGB 32.2 pg (26.0-34.0); Mean Corpuscular HGB Conc 33.3 g/dL (31.5-36.5); Mean Corpuscular Volume 97 fL (80-100); Mean Platelet Volume 10.2 fL (9.1-12.4); NEUTROPHILS ABSOLUTE AUTO 2.79 K/mm3 (1.96-9.15); NEUTROPHILS PERCENT AUTO 59 % (41-73); Platelet Count 181 K/mm3 (150-400); RDW Coefficient Variation 12.8 % (11.7-14.2); RDW Standard Deviation 43.8 fL (35.1-46.3); Red Blood Cell Count 2.86 M/mm3 (4.30-5.90); White Blood Cell Count 4.73 K/mm3 (4.00-11.30)
[2023-05-01 06:31] LABS: Albumin, Blood 2.3 g/dL (3.4-5.0); Anion Gap 6 mmol/L (6-16); Blood Urea Nitrogen 28 mg/dL (8-24); Bun/Creatinine Ratio 25.9 (12.0-20.0); CO2, Blood 25 mmol/L (21-32); Calcium, Blood 7.3 mg/dL (8.5-10.1); Chloride, Blood 111 mmol/L (98-108); Creatinine, Blood 1.08 mg/dL (0.60-1.20); Glomerular Filtration Rate 78 (60-); Glucose, Blood 81 mg/dL (70-99); Phosphorus, Blood 2.4 mg/dL (2.5-4.9); Potassium, Blood 3.4 mmol/L (3.5-5.5); Sodium, Blood 142 mmol/L (136-145)
[2023-05-01 07:15] VITALS: BP 112/62
--- NOTE | 2023-05-01 09:00 | NUR ---
Pt laying in bed watching tv, a/ox4, pleasant and coopertive with care, follows commands well, denies pain, states his night was good, currently on 2 liters o2 via n/c, no cough noted, lungs have an insp snore/rub, hrr, tele in place running sr per monitor, was reported durring the night he dropped to the 30's for a five beat run, currently in the 70's, 2+edema noted to b/l le, ppp+1, cap refill <3sec vs stable, afebrile, piv sites are clear and patent, btx4 abd flat soft nontender, voids without diff, skin has a pink coccyx with preventative mepilex in place, ambulates with walker and stand by assist, [place], call light in reach.
[2023-05-01 14:55] VITALS: BP 141/65
--- NOTE | 2023-05-01 17:27 | NUR ---
Met with pt this afternoon at bedside. He had multiple family members in the room with him, and the pt was smiling and laughing with them. He stated he has a plan for radiation, and states he feels "really positive" about treatment plan. We did not discuss code status today. I am not planning on discussing it with him during this hospital stay, as he is not ready to have the discussion.
--- NOTE | 2023-05-01 18:29 | NUR ---
pt had a shower today, states he's feeling ok, no acute changes this shift, no complaints of pain, call light in reach.
[2023-05-01 20:22] VITALS: BP 122/61; BP 135/72
[2023-05-02 02:19] VITALS: BP 119/77
--- NOTE | 2023-05-02 02:23 | NUR ---
NOTIFIED BY TELE THAT PT HAS HR OF 150. CHECKED ON PT WHO WAS JUST GETTING BACK TO BED FROM GOING TO THE BATHROOM. EKG DONE AND DR HERNANDEZ CALLED, AWAITING CALL BACK. PT DENIES ANY SIGNS, SYMPTOMS, OR SOB AT THIS TIME.
--- NOTE | 2023-05-02 02:59 | NUR ---
TELE PLACED ORDERS DUE TO INCREASED HR. SEE EMAR. PT HAS NO SIGNS OR SYMPTOMS AT THIS TIME. AFTER MEDS GIVEN PT HR IS CURRENTLY 130. WILL RECHECK. TELE MADE AWARE. CONTINUE TO MONITOR
--- NOTE | 2023-05-02 04:02 | NUR ---
PT CURRENTLY SR @ 60 AFTER 2 DOSES OF LOPRESSOR GIVEN. SEE EMAR. WILL CONTINUE TO MONITOR. RETAIL SALES DIRECTOR AWARE.
--- NOTE | 2023-05-02 05:05 | NUR ---
SHIFT SUMMARY PT A&O X4, COOPERATIVE WITH CARE. PT USES FWW W/SBA. PT C/O LEFT SHOULDER PAIN, DECLINED TYLENOL. TREATED WITH HEAT THERAPY. PT IS ON ROOM AIR WHEN AWAKE AND CURRENTLY ON 2L VIA NC WHILE ASLEEP. TELEMETRY: SR @ 80. ALERTED BY TELE OF INCREASED HR. PT SUSTAINING IN 150-160S. NOTIFIED DR TOMPKINS, SEE ORDERS. KAREN SR @ 64. OTHER VSS. NO OTHER ACUTE EVENTS OVERNIGHT. WILL CONTINUE TO MONITOR. BED IN LOWEST POSITION WITH CALL LIGHT IN REACH. PT IS ABLE TO MAKE NEEDS KNOWN.
[2023-05-02 05:53] LABS: BASOPHILS ABSOLUTE AUTO 0.01 K/mm3 (0.00-0.23); BASOPHILS PERCENT AUTO 0 % (0-2); EOSINOPHILS ABSOLUTE AUTO 0.13 K/mm3 (0.00-0.68); EOSINOPHILS PERCENT AUTO 2 % (0-6); Hematocrit 28.4 % (37.0-53.0); Hemoglobin 9.5 g/dL (13.5-17.5); IMMATURE GRAN ABSOLUTE AUTO 0.05 K/mm3 (0.00-0.10); IMMATURE GRAN PERCENT AUTO 1 % (0-1); LYMPHOCYTES ABSOLUTE AUTO 1.66 K/mm3 (0.84-5.20); LYMPHOCYTES PERCENT AUTO 24 % (21-46); MONOCYTES ABSOLUTE AUTO 0.76 K/mm3 (0.16-1.47); MONOCYTES PERCENT AUTO 11 % (4-13); Mean Corpuscular HGB 32.3 pg (26.0-34.0); Mean Corpuscular HGB Conc 33.5 g/dL (31.5-36.5); Mean Corpuscular Volume 97 fL (80-100); Mean Platelet Volume 10.2 fL (9.1-12.4); NEUTROPHILS ABSOLUTE AUTO 4.19 K/mm3 (1.96-9.15); NEUTROPHILS PERCENT AUTO 62 % (41-73); Platelet Count 191 K/mm3 (150-400); RDW Coefficient Variation 13.1 % (11.7-14.2); Red Blood Cell Count 2.94 M/mm3 (4.30-5.90)
[2023-05-02 06:33] LABS: Albumin, Blood 2.2 g/dL (3.4-5.0); Anion Gap 5 mmol/L (6-16); Blood Urea Nitrogen 24 mg/dL (8-24); Bun/Creatinine Ratio 21.8 (12.0-20.0); CO2, Blood 24 mmol/L (21-32); Calcium, Blood 7.1 mg/dL (8.5-10.1); Chloride, Blood 111 mmol/L (98-108); Glomerular Filtration Rate 76 (60-); Glucose, Blood 86 mg/dL (70-99); Phosphorus, Blood 2.7 mg/dL (2.5-4.9); Potassium, Blood 3.6 mmol/L (3.5-5.5); Sodium, Blood 140 mmol/L (136-145)
[2023-05-02 07:44] VITALS: BP 104/57
--- NOTE | 2023-05-02 08:35 | NUR ---
PATIENT WITH EPISODE OF BRADYCARDIA PER KENNETH ELIAS TECH.HR 35, RIKKI FOR 12 SECONDS, PAUSE FOR 2.84 SECONDS. PATIENT SLEEPING BUT WAKES EASILY AND DENIES ANY SYMPTOMS AT THIS TIME. PHONE CALL PLACED TO RIANA PERRY AT 0830. WAITING FOR CALL BACK.
[2023-05-02 10:50] VITALS: BP 101/60
[2023-05-02 17:29] VITALS: BP 120/66
--- NOTE | 2023-05-02 18:41 | NUR ---
SHIFT SUMMARY NO FURTHER ACUTE EVENTS DURING SHIFT. PATIENT WITH LEFT SHOULDER PAIN, RELIEVED WIH HEATING PAD AND LATE IN AFTERNOON, DOSE OF TYLENOL PER EMAR. HE IS UP TO BATHROOM WITH WALKER INDEPENDENT. BED IN LOW POSITION. CALL LIGHT IN REACH. PATIENT CALLS APPROPRIATELY.
[2023-05-02 19:21] VITALS: BP 106/57
[2023-05-03 02:23] VITALS: BP 144/69
[2023-05-03 06:12] LABS: Albumin, Blood 2.1 g/dL (3.4-5.0); Anion Gap 5 mmol/L (6-16); Blood Urea Nitrogen 19 mg/dL (8-24); Bun/Creatinine Ratio 17.1 (12.0-20.0); CO2, Blood 26 mmol/L (21-32); Calcium, Blood 7.1 mg/dL (8.5-10.1); Chloride, Blood 109 mmol/L (98-108); Creatinine, Blood 1.11 mg/dL (0.60-1.20); Glomerular Filtration Rate 75 (60-); Glucose, Blood 89 mg/dL (70-99); Phosphorus, Blood 2.8 mg/dL (2.5-4.9); Potassium, Blood 3.9 mmol/L (3.5-5.5); Sodium, Blood 140 mmol/L (136-145)
[2023-05-03 08:31] VITALS: BP 123/65
[2023-05-03] MEDS ORDERED: HYDCOR20 PO (12:44)
[2023-05-03] MEDS ORDERED: LEVO750 PO (12:44)
[2023-05-03] MEDS ORDERED: XARELTO20 MG PO (12:45)
--- NOTE | 2023-05-03 13:58 | NUR ---
DISCHARGE HOME PATIENT DISCHARGED HOME. HE IS AGREEABLE TO TO THE PLAN. REVIEWED DC INSTRUCTION WITH HIM AND HIS DAUGHTER. MEDICATIONS FAXED TO [facility] IV AND TELE DC'S. PATIENT ESCORTED OUT TO [facility] VEHICLE BY THIS CUSTOMER SUPPORT CONSULTANT. PATIENT STABLE AT TIME IF DISCHARGE.
== END 2023-05-03 13:41 | disposition home or self-care (01) | DRG 871 ==
LOC: ER 15:43 → PCU 20:01 → ICUE 20:01 → PCU 04-28 17:50 → MEDS 04-29 12:15 → ENPENDDIS 05-03 11:02 → MEDS 05-03 13:41
PROVIDERS: Emergency Medicine; Family Medicine; Internal Medicine; Nurse Practitioner Acute Care; ADMIT Internal Medicine
PROC: 3E033XZ Introduction of Vasopressor into Peripheral Vein, Percutaneous Approach (ICD-10-PCS; 2023-04-26)
PROC: 3E03329 Introduction of Other Anti-infective into Peripheral Vein, Percutaneous Approach (ICD-10-PCS; 2023-04-26)
PROC: 5A09357 Assistance with Respiratory Ventilation, Less than 24 Consecutive Hours, Continuous Positive Airway Pressure (ICD-10-PCS; principal; 2023-04-27)
DX: A41.9 Sepsis, unspecified organism (principal); G92.8 Other toxic encephalopathy; J96.01 Acute respiratory failure with hypoxia; J18.9 Pneumonia, unspecified organism; R57.8 Other shock; E27.2 Addisonian crisis; N17.9 Acute kidney failure, unspecified; C34.90 Malignant neoplasm of unspecified part of unspecified bronchus or lung; J44.0 Chronic obstructive pulmonary disease with (acute) lower respiratory infection; E87.20 Acidosis, unspecified; D84.9 Immunodeficiency, unspecified; F10.239 Alcohol dependence with withdrawal, unspecified; E27.3 Drug-induced adrenocortical insufficiency; E86.9 Volume depletion, unspecified; F17.210 Nicotine dependence, cigarettes, uncomplicated; Z20.822 Contact with and (suspected) exposure to COVID-19; E03.9 Hypothyroidism, unspecified; T45.1X5A Adverse effect of antineoplastic and immunosuppressive drugs, initial encounter; I48.91 Unspecified atrial fibrillation; E83.39 Other disorders of phosphorus metabolism; E87.6 Hypokalemia; I27.20 Pulmonary hypertension, unspecified; D64.9 Anemia, unspecified; I10 Essential (primary) hypertension; Z90.89 Acquired absence of other organs; Z88.0 Allergy status to penicillin
CPT/HCPCS: 0241U; 36415; 51701; 51703; 70450; 71045; 71260; 80048; 80053; 80069; 80076; 81001; 82533; 82550; 82570; 82803; 83605; 83735; 83880; 84100; 84145; 84300; 84439; 84443; 84481; 84484; 85025; 85610; 85730; 87040; 87449; 93005; 93010; 93306; 94660; 94762; 96365; 96375; 97110; 97116; 97162; 97530; 99285-25; A9270; J0282; J0456; J0692; J0696; J1644; J1650; J1720; J2060; J3411; J3475; J3480; J7030; J7050; J7060; J7120; Q9967

== ENCOUNTER 2023-05-09 12:43 | Inpatient (IN) | payer OTHER ==
[2023-05-09] VITALS (21 sets, daily range): BP systolic 91–159; BP diastolic 50–77
[~2023-05-09] VITALS: Ht 182.9 cm; Wt 73.6 kg
[~2023-05-09 12:43] MED LIST changes: +LEVO750 PO; +XARELTO20 MG PO
[2023-05-09 14:03] LABS: BASOPHILS ABSOLUTE AUTO 0.09 K/mm3 (0.00-0.23); BASOPHILS PERCENT AUTO 1 % (0-2); EOSINOPHILS ABSOLUTE AUTO 0.11 K/mm3 (0.00-0.68); EOSINOPHILS PERCENT AUTO 1 % (0-6); Hemoglobin 11.1 g/dL (13.5-17.5); IMMATURE GRAN ABSOLUTE AUTO 0.18 K/mm3 (0.00-0.10); IMMATURE GRAN PERCENT AUTO 1 % (0-1); LYMPHOCYTES ABSOLUTE AUTO 1.48 K/mm3 (0.84-5.20); LYMPHOCYTES PERCENT AUTO 11 % (21-46); MONOCYTES ABSOLUTE AUTO 1.47 K/mm3 (0.16-1.47); MONOCYTES PERCENT AUTO 11 % (4-13); Mean Corpuscular HGB 32.5 pg (26.0-34.0); Mean Corpuscular HGB Conc 33.6 g/dL (31.5-36.5); Mean Corpuscular Volume 97 fL (80-100); NEUTROPHILS ABSOLUTE AUTO 9.74 K/mm3 (1.96-9.15); NEUTROPHILS PERCENT AUTO 75 % (41-73); Platelet Count 307 K/mm3 (150-400); RDW Coefficient Variation 13.9 % (11.7-14.2); RDW Standard Deviation 49.2 fL (35.1-46.3); Red Blood Cell Count 3.42 M/mm3 (4.30-5.90); White Blood Cell Count 13.07 K/mm3 (4.00-11.30)
[2023-05-09 14:25] LABS: Alanine Aminotransfer (ALT/SGP 14 U/L (12-78); Albumin, Blood 2.5 g/dL (3.4-5.0); Albumin/Globulin Ratio 0.6 (0.8-1.8); Alk Phos 52 U/L (50-136); Anion Gap 10 mmol/L (6-16); Aspartate Aminotrans (AST/SGOT 27 U/L (12-37); Bilirubin, Total 0.8 mg/dL (0.1-1.0); Blood Urea Nitrogen 11 mg/dL (8-24); Bun/Creatinine Ratio 6.1 (12.0-20.0); CO2, Blood 23 mmol/L (21-32); Chloride, Blood 97 mmol/L (98-108); Globulin, Blood 3.9 g/dL (2.2-4.0); Glomerular Filtration Rate 42 (60-); Glucose, Blood 84 mg/dL (70-99); Potassium, Blood 3.9 mmol/L (3.5-5.5); Sodium, Blood 130 mmol/L (136-145); Total Protein, Blood 6.4 g/dL (6.4-8.2)
[2023-05-09 14:45] LABS: Source, Urine Clean Catch
[2023-05-09 14:49] LABS: Appearance, Urine Clear (Clear); Bilirubin, Urine Neg (Neg); Blood, Urine 1+ (Neg); Color, Urine Yellow (P-Yellow); Glucose Qualitative, Urine Neg (Neg); Ketones, Urine 2+ (Neg); Leukocyte Esterase, Urine 1+ (Neg); Nitrite, Urine Neg (Neg); Protein, Urine Neg (Neg); Specific Gravity, Urine 1.015 (1.003-1.022); Urobilinogen, Urine NORM (Normal)
[2023-05-09 15:00] LABS: Bacteria Few /hpf; Red Blood Cells, Urine 0-2 /hpf (0-2); Squamous Epithelial Cells Not Seen /hpf (Few); White Blood Cells, Urine 0-2 /hpf (0-5)
[2023-05-09 15:22] LABS: Ethanol (Alcohol), Blood, Med <3 mg/dL
[2023-05-09 16:35] LABS: U Amphetamine Screen Not Detected; U Barbituate Screen Not Detected; U Benzodiazapine Screen Not Detected; U Buprenorphine Screen Not Detected; U Cannabinoids Screen Not Detected; U Cocaine Screen Not Detected; U Methadone Screen Not Detected; U Methamphetamine Screen Not Detected; U Opiates Screen Not Detected; U Oxycodone Screen Not Detected; U Phencyclidine Screen Not Detected; U Propoxyphene Screen Not Detected
[2023-05-09 18:34] LABS: Base Excess Venous -2.2 mmol/L; Bicarbonate Venous 22.5 mmol/L (24.0-30.0); PCO2 Venous 45.4 mmHg (38-42); pH Blood Venous 7.33 (7.34-7.37)
[2023-05-09 19:19] LABS: Adenovirus Not Detected (NOT DETECT); Coronavirus 229E Not Detected (NOT DETECT); Coronavirus HKU1 Not Detected (NOT DETECT); Coronavirus NL63 Not Detected (NOT DETECT)
[2023-05-09 19:20] LABS: Bordetella pertussis Not Detected (NOT DETECT); Chlamydophila pneumoniae Not Detected (NOT DETECT); Coronavirus OC43 Not Detected (NOT DETECT); Human Metapneumovirus Not Detected (NOT DETECT); Human Rhinovirus/Enterovirus Not Detected (NOT DETECT); Influenza A/2009-H1 Not Detected (NOT DETECT); Influenza A/H1 Not Detected (NOT DETECT); Influenza A/H3 Not Detected (NOT DETECT); Influenza B Not Detected (NOT DETECT); Mycoplasma pneumoniae Not Detected (NOT DETECT); Parainfluenza Virus 1 Not Detected (NOT DETECT); Parainfluenza Virus 2 Not Detected (NOT DETECT); Parainfluenza Virus 3 Not Detected (NOT DETECT); Parainfluenza Virus 4 Not Detected (NOT DETECT); Respiratory Syncytial Virus Not Detected (NOT DETECT); SARS-Cov-2 (COVID-19), BioFire Not Detected (NOT DETECT)
--- NOTE | 2023-05-09 20:00 | NUR ---
PT ADMITTED TO ROOM ICU 8 FROM ED AT 1847. REPORT RECEIVED. PT SLIDE TRANSFERRED TO BED. PT ALERT AND ORIENTED. PLEASANT AND COOPERATIVE WITH CARE AND ASSESSMENT. NOTED: LEVOPHED AT 9 MCG'S/MIN. BLOOD PRESSURE WITH MAP > 65. DECREASED RATE TO 7 MCG'S. PT FALLS ASLEEP QUICKLY AFTER BEING ADMITTED. PT'S GIRLFRIEND AND PT'S DAUGHTER TO ROOM. HELPFUL WITH ADMISSION PROCESS EXCEPT FOR PT'S MEDICATIONS THAT HE IS SUPPOSE TO BE TAKING. WILL REVIEW CHART AND PLAN OF CARE FOR THIS PT.
[2023-05-09 20:13] LABS: Calcium, Blood 7.3 mg/dL (8.5-10.1); Creatinine, Blood 1.85 mg/dL (0.60-1.20); Potassium, Blood 3.9 mmol/L (3.5-5.5)
[2023-05-10] VITALS (30 sets, daily range): BP systolic 89–138; BP diastolic 52–69
--- NOTE | 2023-05-10 | NUR ---
PT HAS BEEN ABLE TO REST SOME. HAVE BEEN ABLE TO TITRATE LEVOPHED TO OFF. VSS. NO S/S DISTRESS. VOIDS Q.S. ABLE TO MOVE HIMSELF ABOUT IN BED ON HIS OWN. ATE SNACK THIS EVENING. NO N/V. WILL CONTINUE TO MONITOR PT.
[2023-05-10 05:09] LABS: BASOPHILS ABSOLUTE AUTO 0.02 K/mm3 (0.00-0.23); BASOPHILS PERCENT AUTO 0 % (0-2); EOSINOPHILS PERCENT AUTO 0 % (0-6); Hematocrit 29.3 % (37.0-53.0); Hemoglobin 9.9 g/dL (13.5-17.5); IMMATURE GRAN ABSOLUTE AUTO 0.02 K/mm3 (0.00-0.10); IMMATURE GRAN PERCENT AUTO 0 % (0-1); LYMPHOCYTES ABSOLUTE AUTO 0.24 K/mm3 (0.84-5.20); LYMPHOCYTES PERCENT AUTO 5 % (21-46); MONOCYTES ABSOLUTE AUTO 0.31 K/mm3 (0.16-1.47); MONOCYTES PERCENT AUTO 6 % (4-13); Mean Corpuscular HGB 32.4 pg (26.0-34.0); Mean Corpuscular HGB Conc 33.8 g/dL (31.5-36.5); Mean Corpuscular Volume 96 fL (80-100); Mean Platelet Volume 10.6 fL (9.1-12.4); NEUTROPHILS ABSOLUTE AUTO 4.45 K/mm3 (1.96-9.15); NEUTROPHILS PERCENT AUTO 88 % (41-73); Platelet Count 136 K/mm3 (150-400); RDW Coefficient Variation 13.5 % (11.7-14.2); RDW Standard Deviation 47.8 fL (35.1-46.3); Red Blood Cell Count 3.06 M/mm3 (4.30-5.90); White Blood Cell Count 5.04 K/mm3 (4.00-11.30)
[2023-05-10 05:50] LABS: Albumin/Globulin Ratio 0.6 (0.8-1.8); Bilirubin, Total 0.3 mg/dL (0.1-1.0); Bun/Creatinine Ratio 9.1 (12.0-20.0); Calcium, Blood 7.3 mg/dL (8.5-10.1); Creatinine, Blood 1.64 mg/dL (0.60-1.20); Globulin, Blood 3.5 g/dL (2.2-4.0); Magnesium, Blood 2.1 mg/dL (1.6-2.4); Potassium, Blood 3.9 mmol/L (3.5-5.5); Total Protein, Blood 5.5 g/dL (6.4-8.2)
--- NOTE | 2023-05-10 07:16 | NUR ---
DR CALLOWAY COMES IN TO SEE PT. UPDATE GIVEN AT BEDSIDE. BEDSIDE REPORT GIVEN TO ONCOMING RN. PT AWAKENS AND SPEAKS WITH DR CALLOWAY ABOUT ISSUES WITH OBTAINING HOME MEDICATIONS. PT'S BLOOD PRESSURE REMAIN STABLE WITH MAPS > 65 WITHOUT THE AID OF LEVOPHED.
--- NOTE | 2023-05-10 07:30 | NUR ---
ASSUMED CARE OF PT AT 0700, BEDSIDE REPORT WITH NOC SHIFT RN, DURING WHICH DR. CALLOWAY COMES IN, SPEAKS WITH NURSES AND PT. PT FULLY COMPETENT IN ANSWERS, PT IS OFF THE NOREPINEPHRINE, STABLE. COOPERATIVE WITH CARE.
--- NOTE | 2023-05-10 10:21 | NUR ---
PT STATUS DOWNGRADED, RIGHT IJ CENTRAL LINE REMOVED. PT TOLERATED PROCEDURE WELL, FOLLOWED DIRECTIONS WITHOUT INCIDENT. IV FLUIDS IN RIGHT FOREARM. PT EATING WELL, CONVERSING, WATCHING TELEVISION, DENIES ANY COMPLAINTS.
--- NOTE | 2023-05-10 12:33 | NUR ---
SITTING UP HAVING HIS LUNCH, DENIES ANY C/O EXCEPT SORENESS WITH HIS SWOLLEN FEET. HE TOOK HIS ORAL HYDROCORTISONE WITHOUT INCIDENT, SAID, "I KNEW I NEEDED MORE THAN JUST 2 PILLS WHEN I LEFT HERE". S/O HERE.
--- NOTE | 2023-05-10 16:37 | NUR ---
TANISHA CONTINUES TO DO WELL, HIS BP HAS REMAINED STABLE, MAP >65 WITHOUT ASSIST HE HAS BEEN EATING AND DRINKING WELL, USING THE URINAL APPROPRIATELY, CONVER- SING WITHOUT INCIDENT WITH FAMILY, STAFF AND DR. HE HAS BEEN WATCHING TV, HAS DECLINED ANY PERSONAL CARE, ie ORAL CARE, FACE WASH, BED BATH. CONTINUES WITH BLE EDEMA.
--- NOTE | 2023-05-10 18:12 | NUR ---
NO CHANGES FOR TANISHA, GOOD APPETITE, A/O X 4, VOIDS PER URINAL, ABLE TO REPOSITION SELF, BLE EDEMA CONTINUES. IV FLUIDS @ 125ML/HR, WATCHING TV, NO COMPLAINTS.
[2023-05-11] VITALS (12 sets, daily range): BP systolic 74–102; BP diastolic 53–64
--- NOTE | 2023-05-11 04:37 | NUR ---
MD NOTIFIED THAT PATIENT SUSTAINING HEART RATE IN THE 140S. MD WILL LOOK AT CHART. NO NEW ORDERS AT THIS TIME.
[2023-05-11 04:53] LABS: BASOPHILS ABSOLUTE AUTO 0.01 K/mm3 (0.00-0.23); BASOPHILS PERCENT AUTO 0 % (0-2); EOSINOPHILS PERCENT AUTO 0 % (0-6); Hematocrit 26.6 % (37.0-53.0); IMMATURE GRAN ABSOLUTE AUTO 0.03 K/mm3 (0.00-0.10); IMMATURE GRAN PERCENT AUTO 0 % (0-1); LYMPHOCYTES ABSOLUTE AUTO 0.21 K/mm3 (0.84-5.20); LYMPHOCYTES PERCENT AUTO 3 % (21-46); MONOCYTES ABSOLUTE AUTO 0.29 K/mm3 (0.16-1.47); MONOCYTES PERCENT AUTO 3 % (4-13); Mean Corpuscular HGB 32.4 pg (26.0-34.0); Mean Corpuscular HGB Conc 33.8 g/dL (31.5-36.5); Mean Corpuscular Volume 96 fL (80-100); Mean Platelet Volume 10.6 fL (9.1-12.4); NEUTROPHILS ABSOLUTE AUTO 8.02 K/mm3 (1.96-9.15); NEUTROPHILS PERCENT AUTO 94 % (41-73); Platelet Count 116 K/mm3 (150-400); RDW Coefficient Variation 13.6 % (11.7-14.2); RDW Standard Deviation 48.5 fL (35.1-46.3); Red Blood Cell Count 2.78 M/mm3 (4.30-5.90); White Blood Cell Count 8.56 K/mm3 (4.00-11.30)
[2023-05-11 05:17] LABS: Albumin/Globulin Ratio 0.6 (0.8-1.8); Bilirubin, Total 0.3 mg/dL (0.1-1.0); Bun/Creatinine Ratio 13.6 (12.0-20.0); Creatinine, Blood 1.4 mg/dL (0.60-1.20); Globulin, Blood 3.6 g/dL (2.2-4.0); Phosphorus, Blood 3.1 mg/dL (2.5-4.9); Total Protein, Blood 5.6 g/dL (6.4-8.2)
--- NOTE | 2023-05-11 06:31 | NUR ---
TRANSFER FROM ICU. HEART RATE UP TO 140S. MD NOTIFIED. IV METOPROLOL GIVEN. IV NORMAL SALINE BOLUS GIVEN. UP WITH SBA TO BATHROOM. ALSO USES THE URINAL. NO C/O PAIN. ADRENAL CRISIS RESOLVED.
--- NOTE | 2023-05-11 09:45 | NUR ---
BURDEN ROUNDED ON PATIENT, DR TO MAKE CHANGES TO PATIENTS ORDERS
[2023-05-11 16:47] LABS: Albumin, Blood 2.1 g/dL (3.4-5.0); Anion Gap 7 mmol/L (6-16); Blood Urea Nitrogen 19 mg/dL (8-24); Bun/Creatinine Ratio 15.3 (12.0-20.0); CO2, Blood 21 mmol/L (21-32); Calcium, Blood 7.5 mg/dL (8.5-10.1); Chloride, Blood 109 mmol/L (98-108); Creatinine, Blood 1.24 mg/dL (0.60-1.20); Glomerular Filtration Rate 66 (60-); Glucose, Blood 169 mg/dL (70-99); Phosphorus, Blood 2.7 mg/dL (2.5-4.9); Potassium, Blood 3.3 mmol/L (3.5-5.5); Sodium, Blood 137 mmol/L (136-145)
--- NOTE | 2023-05-11 18:03 | NUR ---
PATIENT ASYMPTOMATIC OF HYPOTENSION AND TACHYCARDIA, PULSE 147, LAST BP 92/64 (74), REPORTED TO DR CALLOWAY, PATIENT WAS MEDICATED THROUGH OUT THE DAY FOR TACHYCARDIA AND HYPOTENSION. DR CALLOWAY WANTS TO TRY STARTING AMIODARONE AND SEE THE EFFECTS, ALEJANDRA LEG EDEMA 1+, LS DIM IN BASES, ENCOURAGED DEEP BREATHING AND COUGH, PATIENT PLEASANT AND COOPERATIVE TO CARE, WILL RELAY TO PM RN
[2023-05-12] VITALS (9 sets, daily range): BP systolic 81–118; BP diastolic 56–72
--- NOTE | 2023-05-12 01:12 | NUR ---
TRANSFER SHIFT SUMMARY: PT HERE WITH ADRENAL INSUFFICIENCY D/T CHEMOTHERAPY INDUCED. HEART RATE SUSTAINING IN THE 130S TO 140S ALL DAY AND TONIGHT. BLOOD PRESSURE CONTINUES TO BE LOW. MD NOTIFIED. PCU TRANSFER ORDERED. PATIENT IS ALERT AND ORIENTED X4. CALLS APPROPRIATELY. NO C/O PAIN. UP WITH SBA TO BATHROOM. PT HAS NO SYMPTOMS WITH HEART RATE OR BLOOD PRESSURE.
[2023-05-12 04:13] LABS: BASOPHILS PERCENT AUTO 0 % (0-2); EOSINOPHILS PERCENT AUTO 0 % (0-6); Hematocrit 24.5 % (37.0-53.0); Hemoglobin 8.1 g/dL (13.5-17.5); IMMATURE GRAN ABSOLUTE AUTO 0.02 K/mm3 (0.00-0.10); IMMATURE GRAN PERCENT AUTO 0 % (0-1); LYMPHOCYTES ABSOLUTE AUTO 0.19 K/mm3 (0.84-5.20); LYMPHOCYTES PERCENT AUTO 4 % (21-46); MONOCYTES ABSOLUTE AUTO 0.16 K/mm3 (0.16-1.47); MONOCYTES PERCENT AUTO 4 % (4-13); Mean Corpuscular HGB Conc 33.1 g/dL (31.5-36.5); Mean Corpuscular Volume 97 fL (80-100); Mean Platelet Volume 10.4 fL (9.1-12.4); NEUTROPHILS ABSOLUTE AUTO 4.19 K/mm3 (1.96-9.15); NEUTROPHILS PERCENT AUTO 92 % (41-73); Platelet Count 127 K/mm3 (150-400); RDW Standard Deviation 49.6 fL (35.1-46.3); Red Blood Cell Count 2.53 M/mm3 (4.30-5.90); White Blood Cell Count 4.56 K/mm3 (4.00-11.30)
[2023-05-12 04:31] LABS: Albumin, Blood 2.1 g/dL (3.4-5.0); Anion Gap 8 mmol/L (6-16); Blood Urea Nitrogen 20 mg/dL (8-24); Bun/Creatinine Ratio 16.1 (12.0-20.0); CO2, Blood 20 mmol/L (21-32); Calcium, Blood 7.2 mg/dL (8.5-10.1); Chloride, Blood 110 mmol/L (98-108); Creatinine, Blood 1.24 mg/dL (0.60-1.20); Glomerular Filtration Rate 66 (60-); Glucose, Blood 161 mg/dL (70-99); Phosphorus, Blood 2.6 mg/dL (2.5-4.9); Potassium, Blood 4.2 mmol/L (3.5-5.5); Sodium, Blood 138 mmol/L (136-145)
--- NOTE | 2023-05-12 06:10 | NUR ---
SHIFT SUMMARY/TRANSFER NOTE RECEIVED REPORT FROM MEDICAL FLOOR RN ULISES STERLING AT 0047, PT SHORTLY ARRIVED TO PCU 17 ~0100 THIS AM. PT ARRIVED A/Ox4 AND COOPERATIVE WITH STAFF. ANSWERS QUESTIONS APPROPRIATELY AND ABLE TO MAKE HIS NEEDS KNOWN. RESPIRATORY, MAINTAINS SPO2 >95% ON RA WITH NO COMPLAINTS OF SOB OR DYSPNEA. CARDIAC, ARRIVED IN AFIB RHYTHM RANGING 130 S WITH SBP RANGING 80'S. PT DENIES ANY CP, PRESSURE, PALPITATIONS, OR DIZZINESS. ~0112 THIS AM, PT CONVERTED TO SR RANGING 60-80'S. SBO CONTINUES TO REMAIN SOFT, BUT HAS IMPROVED TO SBP IN THE 90'S AND MAP ALWAYS >65. GI/, ABLE TO INDEPENDENTLY USE URINAL AT BEDSIDE PRODUCING MAME COLORED URINE. NO BM THIS SHIFT. ASSESSED PT FOR RISKS OF ANY IGNITION SOURCES WELL BEHAVIORS FOR INCREASED RISKS OF FIRE DANGER. PT EDUCATED ON COMMON SOURCES OF IGNITION WELL NEED TO KEEP A SAFE ENVIRONMENT. PT VOICED UNDERSTANDING. NO NEW ORDERS AT THIS TIME, WILL REPORT TO ONCOMING RN. CARON OSORIO OF THIS NOTE.
--- NOTE | 2023-05-12 17:15 | NUR ---
SHIFT SUMMARY PT REMAINS ALERT AND ORIENTED. BP STABLE. HR REMAINS NSR. PT DENIES ANY PAIN. PT ABLE TO VOID WITH URINAL INDEPENDENTLY. PT REPOSITIONS HIMSELF INDEPENDENTLY. NO OTHER ACUTE CHANGES THIS SHIFT. WILL CONTINUE TO MONITOR AND REPORT TO ONCOMING RN
[2023-05-13 00:26] VITALS: BP 116/62
[2023-05-13 00:27] VITALS: BP 116/62
[2023-05-13 03:51] VITALS: BP 120/74
[2023-05-13 03:53] LABS: BASOPHILS PERCENT AUTO 0 % (0-2); EOSINOPHILS PERCENT AUTO 0 % (0-6); Hematocrit 24.9 % (37.0-53.0); IMMATURE GRAN ABSOLUTE AUTO 0.01 K/mm3 (0.00-0.10); IMMATURE GRAN PERCENT AUTO 0 % (0-1); LYMPHOCYTES ABSOLUTE AUTO 0.27 K/mm3 (0.84-5.20); LYMPHOCYTES PERCENT AUTO 7 % (21-46); MONOCYTES ABSOLUTE AUTO 0.14 K/mm3 (0.16-1.47); MONOCYTES PERCENT AUTO 4 % (4-13); Mean Corpuscular HGB 32.1 pg (26.0-34.0); Mean Corpuscular HGB Conc 32.1 g/dL (31.5-36.5); Mean Corpuscular Volume 100 fL (80-100); Mean Platelet Volume 10.2 fL (9.1-12.4); NEUTROPHILS ABSOLUTE AUTO 3.43 K/mm3 (1.96-9.15); NEUTROPHILS PERCENT AUTO 89 % (41-73); Platelet Count 139 K/mm3 (150-400); RDW Coefficient Variation 14.2 % (11.7-14.2); Red Blood Cell Count 2.49 M/mm3 (4.30-5.90); White Blood Cell Count 3.85 K/mm3 (4.00-11.30)
[2023-05-13 04:13] LABS: Albumin, Blood 2.3 g/dL (3.4-5.0); Anion Gap 7 mmol/L (6-16); Blood Urea Nitrogen 22 mg/dL (8-24); Bun/Creatinine Ratio 18.6 (12.0-20.0); CO2, Blood 23 mmol/L (21-32); Calcium, Blood 7.3 mg/dL (8.5-10.1); Chloride, Blood 108 mmol/L (98-108); Creatinine, Blood 1.18 mg/dL (0.60-1.20); Glomerular Filtration Rate 70 (60-); Glucose, Blood 143 mg/dL (70-99); Potassium, Blood 4.7 mmol/L (3.5-5.5); Sodium, Blood 138 mmol/L (136-145)
--- NOTE | 2023-05-13 07:54 | NUR ---
SHIFT SUMMARY: A&OX4. DENIES ANY COMPLAINTS OF CHEST PAIN/PRESSURE. HR IS SR IN 50-60. BP STABLE, SEE RECORDED VITAL SIGNS. PLACED ON 2 LPM VIA NC WHILE SLEEPING. PT REPORTS THIS IS BASLINE FOR HIM. SATS MAINTAINED > 92% ON RA WHILE AWAKE. VOIDING CLEAR, YELLOW URINE IN URINAL WITHOUT DIFFICULTY. CALL LIGHT IN REACH. BED IN LOW POSITION.
[2023-05-13 08:07] VITALS: BP 113/68
[2023-05-13 14:40] VITALS: BP 140/77
--- NOTE | 2023-05-13 14:48 | NUR ---
PT ARRIVED TO UNIT AT APROX 1440 FROM PCU. PT SBA USING CANE TO BATHROOM. PT DENIES ANY SOB/CP ON ARRIVAL. TELE IN PLACE.
--- NOTE | 2023-05-13 16:23 | NUR ---
PT TRANSFERRED TO RM 229 BEDSIDE REPORT GIVEN TO MENDEL RAI, PT WITH NO ACUTE CHANGES SINCE THIS MORNING VITALS HAS BEEN STABLE, HRR REMAINED SR 80'S, SBP 113, RR EVEN AND UNLABORED ON RA, DENIES SOB/, AFEBRILE. PT SBA TO TRANSFER TO THE BATHROOM/CHAIR, HAD A SHOWER THIS MORNING. PT TO CONTINUE ANOTHER IV DOSE OF STEROIDS TO TRANSITION TO PO THEN POSS HOME WITH HOME HEALTH. PT TRANSFERRED VIA WHEELCHAIR BY PCT ALL BELONGINGS SENT WITH THE PT.
[2023-05-13 20:32] VITALS: BP 127/58
[2023-05-14 04:18] VITALS: BP 117/64
[2023-05-14 05:10] LABS: Albumin, Blood 2.2 g/dL (3.4-5.0); Anion Gap 6 mmol/L (6-16); Blood Urea Nitrogen 23 mg/dL (8-24); Bun/Creatinine Ratio 21.1 (12.0-20.0); CO2, Blood 24 mmol/L (21-32); Calcium, Blood 7.5 mg/dL (8.5-10.1); Chloride, Blood 108 mmol/L (98-108); Creatinine, Blood 1.09 mg/dL (0.60-1.20); Glomerular Filtration Rate 77 (60-); Glucose, Blood 102 mg/dL (70-99); Phosphorus, Blood 2.7 mg/dL (2.5-4.9); Potassium, Blood 4.5 mmol/L (3.5-5.5); Sodium, Blood 138 mmol/L (136-145)
[2023-05-14 07:12] VITALS: BP 109/68
--- NOTE | 2023-05-14 07:59 | NUR ---
PT VSS T/O NIGHT. PT REP FEELING A BIT STRONGER THIS AM. UP OOB W/CANE AND 1 ASSIST, IS USING CALL LIGHT FOR ASSISTANCE. BEDSIDE REP GIVEN TO CECELIA CHUNG.
[2023-05-14 09:38] VITALS: BP 114/62
--- NOTE | 2023-05-14 14:22 | NUR ---
Spiritual Care Visit. Pt. is awake in bed and welcomes my visit. Pt is a little unsettled about the pharmacy getting his medications set up correctly. Listen with empathy and a calming presence. Pt. verbalizes as expectation that he will soon be getting radiation treatments at the [facility]. Facilitated a life review. Pt. displays evidence of trust and an uplifted spirit. Pt. 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
[2023-05-14 14:43] VITALS: BP 123/73
--- NOTE | 2023-05-14 18:19 | NUR ---
SHIFT SUMMARY PT HAS BEEN INDEPENDENT IN HIS ROOM. PLAN TO TRANSITION TO [facility] TOMORROW THEN POSSIBLE DC HOME. PT TOLERATING FOOD AND FLUIDS. HE DID HAVE SOME CARLOS RED BLOOD ON THE TOILET PAPER AFTER HAVING A BM, PT EDUCATED TO NOTIFY STAFF IT THE AMOUNT INCREASE OR CHANGES.
[2023-05-14 19:55] VITALS: BP 122/74
[2023-05-15 02:05] VITALS: BP 120/65
--- NOTE | 2023-05-15 07:40 | NUR ---
SUMMARY NO ACUTE CHANGES.
[2023-05-15 07:45] VITALS: BP 130/70
[2023-05-15] MEDS ORDERED: Acetaminophen325 M1 PO (13:14)
[2023-05-15] MEDS ORDERED: PACERONE100 M1 PO (13:38)
[2023-05-15] MEDS ORDERED: LIOT5 PO (13:38)
--- NOTE | 2023-05-15 14:57 | NUR ---
Spiritual Care Visit. Pt. is sitting up in bed dressed and awaiting discharge when he welcomes my visit. Pt. is pleasant. Pt. verbalizes about his family dynamic (espeically during hunting season). Pt. displayed evidence of engagement and awareness. Listen with interest and empathy with a calming presence. Pastoral encouragment and a short prayer are given. Pt. verbalized gratitude for the spiritual care visit.
[2023-05-15 16:25] VITALS: BP 117/73
--- NOTE | 2023-05-15 16:47 | NUR ---
DISCHARGE PT PROVIDED WITH WRITTEN AND VERBAL DISCHARGE INSTRUCTION; HE AND HIS S/O REPORTED UNDERSTANDING. PT'S S/O WAS ABLE TO SHOW THIS RN THAT ALL PRESCRIPTIONS HAD BEEN OBTAINED FROM PHARMACY PRIOR TO DISCHARGE. [facility] WAS UNABLE TO FULLY FILL SOME PRESCRIPTIONS; PT VERBALIZED UNDERSTANDING THAT HE WILL NEED TO OBTAIN THE REMAINING QUANTITIES WHEN AVALIABLE FROM PHARACY. DR. CALLOWAY NOTIFIED AND STATED OK FOR DISCHARGE. PT EDUCATED TO F/U WITH PCP AND DR. BARBA IN 1 WEEK. HE WAS ALSO EDUCATED TO F/U SOONER IF HE IS UNABLE TO OBTAIN THE REMAINING QUANTITIES OF MEDICATIONS NEEDED. PT VERBALIZED UNDERSTANDING. VSS AT TIME OF DISCHARGE. PT ASSISTED OUT IN W/C AT APPROXIMATELY 1635.
== END 2023-05-15 16:35 | disposition home or self-care (01) | DRG 643 ==
LOC: ER 12:43 → ICUE 18:31 → MEDS 05-11 01:24 → PCU 05-12 00:53 → SURS 05-13 14:37
PROVIDERS: Emergency Medicine; Family Medicine; Nurse Practitioner Acute Care; Student in an Organized Health Care Education/Training Program; ADMIT Internal Medicine
PROC: 02HV33Z Insertion of Infusion Device into Superior Vena Cava, Percutaneous Approach (ICD-10-PCS; principal; 2023-05-09)
PROC: 3E033XZ Introduction of Vasopressor into Peripheral Vein, Percutaneous Approach (ICD-10-PCS; 2023-05-09)
DX: E27.2 Addisonian crisis (principal); G92.8 Other toxic encephalopathy; J96.01 Acute respiratory failure with hypoxia; N17.9 Acute kidney failure, unspecified; C34.90 Malignant neoplasm of unspecified part of unspecified bronchus or lung; R57.9 Shock, unspecified; R65.10 Systemic inflammatory response syndrome (SIRS) of non-infectious origin without acute organ dysfunction; E03.9 Hypothyroidism, unspecified; F17.210 Nicotine dependence, cigarettes, uncomplicated; I50.9 Heart failure, unspecified; I11.0 Hypertensive heart disease with heart failure; D63.8 Anemia in other chronic diseases classified elsewhere; E27.40 Unspecified adrenocortical insufficiency; E83.39 Other disorders of phosphorus metabolism; E87.6 Hypokalemia; I27.21 Secondary pulmonary arterial hypertension; J44.9 Chronic obstructive pulmonary disease, unspecified; I48.0 Paroxysmal atrial fibrillation; F10.20 Alcohol dependence, uncomplicated; Z11.52 Encounter for screening for COVID-19; Z88.0 Allergy status to penicillin; Z79.899 Other long term (current) drug therapy; Z79.890 Hormone replacement therapy; Z79.2 Long term (current) use of antibiotics; Z79.01 Long term (current) use of anticoagulants; Z87.01 Personal history of pneumonia (recurrent); Z90.89 Acquired absence of other organs; Z92.21 Personal history of antineoplastic chemotherapy
CPT/HCPCS: 0202U; 36415; 36556; 51701; 71045; 76770; 80048; 80053; 80069; 81001; 82140; 82330; 82550; 82803; 83605; 83735; 84100; 84439; 84443; 84481; 85025; 87040; 87086; 93005; 93010; 94640; 94664; 94760; 94762; 96361-59; 96365-59; 96366-59; 96367-59; 96375-59; 96376-59; 99285-25; A9270; C1751; J0612; J0692; J0696; J1720; J3370; J3475; J3480; J7030; J7040; J7050; J7060; J7120